=== PATIENT | male | born 1935 | race Caucasian/White ===

== ENCOUNTER → 2023-08-21 08:57 | Outpatient (BNVA) | payer OTHER, SELFPAY | PROVIDERS: PCP Family Medicine; Visit Provider Internal Medicine | DX: E11.9 Type 2 diabetes mellitus without complications (principal); E07.9 Disorder of thyroid, unspecified; E03.9 Hypothyroidism, unspecified; Z79.890 Hormone replacement therapy; Z79.85 Long-term (current) use of injectable non-insulin antidiabetic drugs | CPT/HCPCS: 99214 ==

== ENCOUNTER 2023-08-31 23:19 | Inpatient (IN) | payer OTHER, SELFPAY ==
--- NOTE | 2023-08-31 22:31 | ECG_ITS ---
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 Measurements Intervals [place] Rate: 102 P: 0 [place]: 0 QRS: -72 QRSD: 110 T: 123 QT: 354 QTc: 463 Interpretive Statements ATRIAL FIBRILLATION WITH RAPID VENTRICULAR RESPONSE LEFT AXIS DEVIATION [QRS AXIS < -30] POSSIBLE ANTERIOR MYOCARDIAL INFARCTION , OF INDETERMINATE AGE [30 ms Q WAVE IN V3/V4, OR R < 0.2 mV IN V4] ST DEPRESSION, CONSIDER SUBENDOCARDIAL INJURY [0.1+ mV ST DEPRESSION] Compared to ECG 08/06/2023 17:51:36 ST (T wave) deviation now present Intraventricular conduction delay no longer present Myocardial infarct finding still present Heavy baseline artifact. Need to repeat Electronically Signed On 09-01-2023 23:03:46 CDT by Ekaterina Delaney M.D. [id number]
[2023-08-31 23:22] VITALS: BP 109/93; PULSE 102; RESP 36; TEMP 36.5; O2SAT 100
--- NOTE | 2023-08-31 23:28 | XRR_ITS ---
PROCEDURE INFORMATION: Exam: XR Chest Exam date and time: 08/31/2023 11:35 PM Age: 88 years old Clinical indication: Dyspnea; Additional info: Dyspnea/cough TECHNIQUE: Imaging protocol: Radiologic exam of the chest. Views: 1 view. COMPARISON: CT chest con [id number] 08/06/2023 4:46 PM FINDINGS: Lungs: There is atelectasis of the left lower lung zone. Pleural spaces: Unremarkable. No pleural effusion. No pneumothorax. Heart/Mediastinum: There is cardiomegaly. Vasculature: Unfolding of the thoracic aorta. Bones/joints: Post sternotomy. Advanced degenerative of bilateral acromioclavicular and glenohumeral joints. XR/XR chest 1V portable [id number] IMPRESSION: No acute cardiopulmonary process.
--- NOTE | 2023-08-31 23:32 | ED_ITS ---
HPI - SOB/Dyspnea 2 General: Chief Complaint: Shortness of Breath/Dyspnea Stated Complaint: sob Time Seen by Provider: 08/31/23 23:27 History of Present Illness: HPI Narrative: 88-year-old male presents to the emergen cy department via EMS personnel. EMS personnel state that they were called because there was concern of the patient's heart rate being low. EMS personnel states that upon arrival patient did appear to be having significant respiratory distress he does have a history of laryngeal cancer with tracheal stoma. Patient does have a history of atrial fibrillation and congestive heart failure and approximately 1 month ago was admitted to the hospital for increased confusion and pneumonia. Patient does appear to be in acute respiratory distress and is having intermittent coughing episodes with thick mucus from his stoma. Associated symptoms: Reports chest pain Review of Systems 2 General: Reports: 10 or more systems reviewed and unremarkable except in HPI and below Const: Reports: fatigue and malaise Card: Reports: chest pain Resp: Reports: dyspnea, productive cough, wheezing and stridor PFSH ED 2 PFSH: Medical History Diastolic CHF Aspiration pneumonia NSTEMI (non-ST elevated myocardial infarction) History of spinal stenosis Atrial fibrillation Peripheral artery disease Coronary artery disease History of myxedema coma COPD (chronic obstructive pulmonary disease) Hypothyroidism Hypokalemia Seropositive rheumatoid arthritis of multiple sites High risk medication use Gout Diabetes Laryngeal cancer Surgical History History of femoropopliteal bypass History of hemorrhoidectomy History of umbilical hernia repair Previous back surgery 1995,1988,1966 H/O heart bypass surgery H/O laryngectomy (09/21/19) Total laryngectomy with bilateral neck dissection and with permanent tracheostomy Family History Other Cancer Diabetes Hypertension Lung disease Stroke Denies family history of Rheumatoid arthritis Lupus CAD (coronary artery disease) Chronic kidney disease (CKD) Social History Smoking and tobacco/nicotine status: former use of tobacco/nicotine Quit status (tobacco/nicotine): has quit using Former quit date comment: smoked x 45 years Physical Exam 2 Narrative: EXAM NARRATIVE: Constitutional: the patient appears well nourished and of normal development. Vital signs as documented. Increased work of breathing, Moderate work of breathing. Alert and oriented-to person, place, time and situation. Head, eyes, ears, nose, mouth, throat: Normocephalic, atraumatic. Pupils-equal, round, reactive to light. No scleral icterus. Normal-appearing external ears. Normal appearing nasal turbinates, no drainage. No obvious oral lesions, posterior oropharynx without erythema or exudates. Neck: Supple, stoma site with thick secretions, carotid bruits. Carotid upstrokes are brisk bilaterally. Lungs: Decreased bilaterally in the bases with intermittent expiratory wheezes. Tachypnea. Symmetrical rise and fall of chest, patient has significant increased work of breathing upon arrival to the emergency department and at initial exam. Cardiac: Atrial fibrillation, rate controlled. positive S1, S2. No murmurs, rubs or gallops that I can appreciate Abdomen: Soft, non-tender to palpation, normal active bowel sounds to all quadrants. No palpable masses, no organomegaly and abdominal bruits. Extremities: 2+ pulses in the upper extremities that are equal bilaterally, 2+ pulses in the lower extremities that are equal bilaterally. 2+ bilateral lower extremity edema. Moves all extremities well, sensation to all extremities are noted. Skin: wounds to buttocks at various stages of healing. Warm, dry, intact. Course 2 Vital Signs: Vital signs: Vital Signs Temperature 98.1 F 09/01/23 12:00 Pulse Rate 93 09/01/23 13:19 Respiratory Rate 22 H 09/01/23 13:19 Blood Pressure 90/77 09/01/23 13:19 Pulse Oximetry 100 09/01/23 13:19 Oxygen Delivery Me thod Room Air 09/01/23 12:00 MDM - SOB/Dyspnea Medical Decision Making Physical exam completed and documented, I will obtain serial cardiac enzymes, serial twelve-lead EKGs, chest x-ray, CBC, CMP, urinalysis, B-type natriuretic peptide, PT/PTT/INR, and a chest x-ray. I will provide cardiac dose aspirin and nitroglycerin administration if indicated. After eview of the twelve-lead EKG I will also provide loading dose of heparin and heparin drip. I have reviewed previous and pertinent medical records for assist in obtaining beneficial medical information to improved the care and treatment of the patient. I will consult the hospitalist for admission for additional evaluation treatment and care. Medical Records I reviewed the patient's medical records. Lab Data I reviewed the patient's lab results. 08/31/23 23:49 08/31/23 23:49 Labs/Radiology: Radiology Impressions Chest X-Ray 08/31/23 23:28 IMPRESSION: No acute cardiopulmonary process. Laboratory Results WBC 7.42 10^3/uL (3.29-11.43) 08/31/23 23:49 RBC 3.27 10^6/uL (3.85-5.65) L 08/31/23 23:49 Hgb 13.00 g/dL (11.27-16.99) 08/31/23 23:49 Hct 38.1 % (37-53) 08/31/23 23:49 MCV 116.5 fl (82-101) H 08/31/23 23:49 MCH 39.8 pg (27-33) H 08/31/23 23:49 MCHC 34.1 g/dL (30-55) 08/31/23 23:49 RDW 14.6 % (12.1-15.1) 08/31/23 23:49 Plt Count 188 10^3/cmm (157-399) 08/31/23 23:49 MPV 9.5 fL (7.4-10.4) 08/31/23 23:49 Neut % (Auto) 60.2 % 08/31/23 23:49 Lymph % (Auto) 27.5 % 08/31/23 23:49 [place] % (Auto) 7.7 % 08/31/23 23:49 Eos % (Auto) 0.1 % 08/31/23 23:49 Baso % (Auto) 0.7 % 08/31/23 23:49 Neut # (Auto) 4.47 10^3/uL (1.8-7.7) 08/31/23 23:49 Lymph # (Auto) 2.0 10^3/uL (0.8-4.8) 08/31/23 23:49 [place] # (Auto) 0.6 10^3/uL (0.2-0.9) 08/31/23 23:49 Eos # (Auto) 0.0 10^3/uL (0.0-0.8) 08/31/23 23:49 Baso # (Auto) 0.1 10^3/uL (0.0-0.1) 08/31/23 23:49 Nucleated RBC % (auto) 0.4 % 08/31/23 23:49 Nucleated RBCs # 0.0 /100WBC 08/31/23 23:49 PT 13.60 SECONDS (12.1-14.9) 08/31/23 23:49 INR 1.01 (0.8-1.2) 08/31/23 23:49 Specimen Type Arterial 08/31/23 23:35 Sample Site Brachial, right 08/31/23 23:35 ABG pH 7.66 (7.35-7.45) H* 08/31/23 23:35 ABG pCO2 11.8 mmHg (35-45) L* 08/31/23 23:35 ABG pO2 163.0 mmHg (80.0-100.0) H 08/31/23 23:35 ABG PO2/FiO2 Ratio 0 08/31/23 23:35 ABG HCO3 13.2 mmol/L (22-26) L 08/31/23 23:35 ABG Base Excess -3.9 mmol/L (-2.0-2.0) L 08/31/23 23:35 Mark Test N/a 08/31/23 23:35 Hematocrit 40.3 % (42-52) L 08/31/23 23:35 Hgb O2 Saturation > 100.0 % (95-100) H 08/31/23 23:35 Carboxyhemoglobin 0.8 %THgb (0.4-20.1) 08/31/23 23:35 Methemoglobin < 0.0 % (0.4-1.5) L 08/31/23 23:35 Total Hemoglobin 13.1 g/dL (14-18) L 08/31/23 23:35 O2 Delivery Device Trach collar 08/31/23 23:35 O2 Liters/Min 10.0 % 08/31/23 23:35 FiO2 60.0 % 08/31/23 23:35 Sheet Metal Supervisor ID Alewe 08/31/23 23:35 Sodium 131 mmol/L (136-145) L 08/31/23 23:49 Potassium 4.7 mmol/L (3.5-5.1) 08/31/23 23:49 Chloride 92 mmol/L (98-107) L 08/31/23 23:49 Carbon Dioxide 15 mmol/L (22-29) L 08/31/23 23:49 Anion Gap 28.7 (5-19) H 08/31/23 23:49 BUN 22 mg/dL (8-23) 08/31/23 23:49 Creatinine 1.1 mg/dL (0.7-1.2) 08/31/23 23:49 GFR Calculation Not Reportable 08/31/23 23:49 Glucose 167 mg/dL (65-115) H 08/31/23 23:49 POC Glucose 174 mg/dL (70-110) H 08/31/23 23:52 Calculated Osmolality 279 mOsm/kg (285-295) L 08/31/23 23:49 Lactic Acid 6.9 mmol/L (0.5-2.2) H* 08/31/23 23:49 Lactic Acid (Sepsis) 4.2 mmol/L (0.5-2.2) H* 09/01/23 02:09 Calcium 9.1 mg/dL (8.5-10.5) 08/31/23 23:49 Total Bilirubin 1.0 mg/dL (0.15-1.2) 08/31/23 23:49 AST 34 U/L (0-40) 08/31/23 23:49 ALT 19 U/L (0-41) 08/31/23 23:49 Alkaline Phosphatase 53 U/L (40-130) 08/31/23 23:49 Troponin T Baseline 140 ng/L (0-15) H* 08/31/23 23:49 Troponin T 120 Minute 116.0 ng/L (0-15) H 09/01/23 02:09 Delta Troponin T -24.0 ABS# (0-10) L 09/01/23 02:09 NT-Pro-B Natriuret Pep 3752 pg/mL (0-450) H 08/31/23 23:49 Total Protein 6.3 g/dL (6.6-8.7) L 08/31/23 23:49 Albumin 3.7 g/dL (3.5-5.2) 08/31/23 23:49 Globulin 2.6 g/dL (1.3-4.6) 08/31/23 23:49 Procalcitonin 0.13 ng/mL (0-0.5) 08/31/23 23:49 Serum Ketones Negative (Negative) 08/31/23 23:49 All radiology interpretation(s) finalized by discharge Discharge Plan Discharge Patient Disposition: Admitted As Inpatient Admit Provider: Gail Art Clinical Impression: Non-ST elevation OR (NSTEMI), Acute dyspnea Condition: Stable Coding Level of Care Code ED [employer]
[2023-08-31 23:43] LABS: Arterial Blood Gas Hematocrit 40.3 % (42-52); Base Excess ABG -3.9 mmol/L (-2.0-2.0); Blood Gas Sample Site Brachial, right; Blood Gas Sample Type Arterial; Carboxyhemoglobin 0.8 %THgb (0.4-20.1); HCO3 ABG 13.2 mmol/L (22-26); HGB O2 Sat > 100.0 % (95-100); Methemoglobin < 0.0 % (0.4-1.5); Oxygen Device TRACH COLLAR; PO2 FiO2 Ratio Arterial Blood 0; Total Hemoglobin 13.1 g/dL (14-18)
[2023-08-31 23:45] LABS: ABG PCO2 11.8 mmHg (35-45); ABG PH Result 7.66 (7.35-7.45)
[2023-08-31 23:54] VITALS: BP 109/93; PULSE 108; RESP 58; O2SAT 100
[2023-08-31 23:57] LABS: Glucose Point of Care 174 mg/dL (70-110)
[2023-08-31 23:58] LABS: Basophils # 0.1 10^3/uL (0.0-0.1); Basophils % 0.7 %; Eosinophils % 0.1 %; Hematocrit 38.1 % (37-53); Lymphocytes % 27.5 %; Mean Corpuscular HGB Conc 34.1 g/dL (30-55); Mean Corpuscular Hemoglobin 39.8 pg (27-33); Mean Corpuscular Volume 116.5 fl (82-101); Mean Platelet Volume 9.5 fL (7.4-10.4); Monocytes # 0.6 10^3/uL (0.2-0.9); Monocytes % 7.7 %; Neutrophils # 4.47 10^3/uL (1.8-7.7); Neutrophils % 60.2 %; Nucleated Red Blood Cells % 0.4 %; Platelet Count 188 10^3/cmm (157-399); Red Blood Count 3.27 10^6/uL (3.85-5.65); Red Cell Distribution Width 14.6 % (12.1-15.1); White Blood Count 7.42 10^3/uL (3.29-11.43)
[2023-09-01] VITALS (10 sets, daily range): BP systolic 90–139; BP diastolic 67–77; PULSE 69–107; RESP 17–33; TEMP 36.7–37.2; O2SAT 96–100; BMI 25.9
[2023-09-01 00:10] LABS: INR 1.01 (0.8-1.2)
[2023-09-01 00:12] LABS: Ketone (Acetest) Serum Negative (Negative)
[2023-09-01 00:27] LABS: Lactic Sepsis W/Reflex 6.9 mmol/L (0.5-2.2); Troponin(5th) Baseline 140 ng/L (0-15)
--- NOTE | 2023-09-01 00:27 | ECG_ITS ---
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 Measurements Intervals [place] Rate: 100 P: 0 ME: 0 QRS: -55 QRSD: 124 T: 101 QT: 375 QTc: 485 Interpretive Statements ATRIAL FIBRILLATION WITH RAPID VENTRICULAR RESPONSE WITH ABERRANT CONDUCTION OR VENTRICULAR PREMATURE COMPLEXES LEFT AXIS DEVIATION [QRS AXIS < -30] POSSIBLE ANTERIOR MYOCARDIAL INFARCTION , OF INDETERMINATE AGE [30 ms Q WAVE IN V3/V4, OR R < 0.2 mV IN V4] MODERATE T-WAVE ABNORMALITY, CONSIDER LATERAL ISCHEMIA [-0.1+ mV T-WAVE IN I/aVL/V5/V6] Compared to ECG 08/31/2023 22:31:19 Ventricular premature complex(es) now present Aberrant conduction of supraventricular beat(s) now present T-wave abnormality now present Possible ischemia now present ST (T wave) deviation no longer present Myocardial infarct finding still present Electronically Signed On 09-01-2023 23:18:35 CDT by Ekaterina Delaney M.D. [id number]
--- NOTE | 2023-09-01 00:29 | PC.RESP ---
Breathing treatment orderer. Not given at this time. Patient pulled trach mask off, pulling at IV, patient appears very agitated and in a great deal of pain. Patient states his jaw hurts. states he has Trigeminal Nerve Pain in his face. RN NOTIFIED at this time.
[2023-09-01 00:30] LABS: NT Pro B Type Natriuretic Pept 3752 pg/mL (0-450); Procalcitonin 0.13 ng/mL (0-0.5)
[2023-09-01 00:41] LABS: Alanine Aminotransferase 19 U/L (0-41); Albumin Level 3.7 g/dL (3.5-5.2); Alkaline Phosphatase 53 U/L (40-130); Blood Urea Nitrogen 22 mg/dL (8-23); Calcium 9.1 mg/dL (8.5-10.5); Carbon Dioxide 15 mmol/L (22-29); Chloride 92 mmol/L (98-107); Globulin 2.6 g/dL (1.3-4.6); Glucose 167 mg/dL (65-115); Osmolality Calculated 279 mOsm/kg (285-295); Sodium 131 mmol/L (136-145); Total Protein 6.3 g/dL (6.6-8.7)
[2023-09-01 00:46] LABS: Anion Gap 28.7 (5-19); Aspartate Amino Transferase 34 U/L (0-40); Potassium 4.7 mmol/L (3.5-5.1)
[2023-09-01] MEDS: sodium chloride 0.9% 1,000 ML 999 ML IV (00:46)
[2023-09-01] MEDS: LORazepam 2 mg/mL INJ 10 mL MDV 0.5 MG IVP (00:47)
[2023-09-01] MEDS: ketorolac 30 mg/mL INJ IVP (00:47)
[2023-09-01] MEDS: aspirin 81 mg Chew Tablet 324 MG PO (01:25)
[2023-09-01 01:45] LABS: Reflex Lactate Order REFLEX LACTIC ORDERD
[2023-09-01] MEDS: heparin 5,000 unit/mL INJ 1 mL 4000 UNIT IVP (02:32)
[2023-09-01 02:39] LABS: Lactic Acid level (Lactate) 4.2 mmol/L (0.5-2.2)
[2023-09-01] MEDS: heparin drip 25,000 UNIT/500 ML PREMIX 24.7699999999999996 UNIT IV (03:03)
--- NOTE | 2023-09-01 05:20 | P.HP_ITS ---
Providers/Chief Complaint 2 Admitting Physician: Gail Art MD Primary Care Provider: Farzaneh Bergeron MD Chief Complaint: sob History of Present Illness Wellington Graham is a 88 year old male with history of CABG, CHF, A-fib not on anticoagulation, myxedema, rheumatoid arthritis, laryngeal cancer status post tracheostomy with stoma, follows up with Dr. Ferreira outpatient, lives with his at home, uses voicebox to communicate, presented to the hospital for respiratory distress. Patient is stating that he was experiencing shortness of breath for last 3 to 4 days, he has not experienced any chest pain, fever, nausea, vomiting or diarrhea. He is endorsing history of COPD and stating that he always notices secretions around his stoma which is yellow to white in color. He does not consider it a new finding. In the ER he was diagnosed with non-STEMI with significant lactic acidosis related to increased work of breathing and respiratory distress ABG showed respiratory alkalosis His breathing improved with use of Ativan in the ER At the time of my evaluation patient is saturating well on room air he is hemodynamically stable not complaining of active shortness of breath or chest pain Patient is stating that he walks on his own with some difficulty but he manages to ambulate from his bedroom to the bathroom Review of Systems 2 Const: Denies: fever(s) Eyes: Denies: change in vision ENMT: Denies: throat pain Card: Denies: chest pain Resp: Reports: dyspnea and productive cough GI: Denies: abdominal pain : Denies: flank pain Musc: Denies: neck pain Skin/Breast: Denies: rash Neuro: Denies: headache(s) Psych: Reports: anxiety Medications/Allergies Home Medications Medication Instructions Recorded Confirmed Last Taken Type aspirin 81 mg tablet,delayed 81 mg PO DAILY 11/19/21 08/21/23 Unknown History release (Adult Aspirin Regimen) metoprolol tartrate 25 mg tablet 12.5 mg PO BID 11/19/21 08/21/23 Unknown History rosuvastatin 20 mg tablet 10 mg PO QPM 11/19/21 08/21/23 Unknown History terazosin 2 mg capsule 2 mg PO BEDTIME 11/19/21 08/21/23 Unknown History tiotropium 2.5 mcg-olodaterol 2.5 2 puff inhalation DAILY 11/19/21 08/21/23 Unknown History mcg/actuation mist for inhalation metolazone 5 mg tablet 2.5 mg PO BID PRN FLUID 12/30/22 08/21/23 Unknown History levothyroxine 150 mcg capsule 150 mcg PO DAILY 60 days #60 caps 01/06/23 08/21/23 Unknown Rx hydrocodone 5 mg-acetaminophen 325 See Rx Instructions .Route 02/10/23 08/21/23 Unknown History mg tablet .COMPLEX PRN Pain diclofenac sodium 1 % topical gel 2 g topical QID #100 grams 06/09/23 08/21/23 Unknown Rx semaglutide 0.25 mg or 0.5 mg (2 See Rx Instructions .Route 07/10/23 08/21/23 Unknown Rx mg/3 mL) subcutaneous pen injector .COMPLEX #3 mL (Ozempic) leflunomide 20 mg tablet See Rx Instructions .Route 07/14/23 08/21/23 Unknown Rx .COMPLEX #90 tabs albuterol sulfate 90 mcg/actuation 1 inh inhalation QID PRN COPD 08/06/23 08/21/23 Unknown History aerosol inhaler allopurinol 100 mg tablet 100 mg PO TID 08/06/23 08/21/23 Unknown History chlorhexidine gluconate 0.12 % See Rx Instructions .Route .COMPLEX 08/06/23 08/21/23 Unknown History mouthwash fluticasone 100 mcg-salmeterol 50 1 inh inhalation BID 08/06/23 08/21/23 Unknown History mcg/dose blistr powdr for inhalation (Advair Diskus) furosemide 40 mg tablet 40 mg PO BID 08/06/23 08/21/23 Unknown History gabapentin 400 mg capsule 400 mg PO TID 08/06/23 08/21/23 Unknown History losartan 50 mg tablet 25 mg PO DAILY 08/06/23 08/21/23 Unknown History magnesium oxide 800 mg PO DAILY 08/06/23 08/21/23 Unknown History megestrol 400 mg/10 mL (10 mL) 400 mg PO BID 08/06/23 08/21/23 Unknown History oral suspension nut.tx.gluc.intol,lac-free,soy See Rx Instructions .Route .COMPLEX 08/06/23 08/21/23 Unknown History (Glucerna oral liquid) nystatin 100,000 unit/mL oral 10 ml PO TID 08/06/23 08/21/23 Unknown History suspension omeprazole 20 mg capsule,delayed 20 mg PO DAILY 08/06/23 08/21/23 Unknown History release potassium chloride 20 mEq/15 mL See Rx Instructions .Route .COMPLEX 08/06/23 08/21/23 Unknown History oral liquid prednisone 5 mg tablet 5 mg PO QAM PRN Inflammation/JOINT 08/06/23 08/21/23 Unknown History FLARE sulfasalazine 500 mg tablet 500 mg PO BID 08/06/23 08/21/23 Unknown History sitagliptin phosphate 100 mg 100 mg PO DAILY #90 tabs 08/24/23 08/24/23 Unknown Rx tablet (Januvia) Allergies Allergy/AdvReac Type Severity Reaction Status Date / Time budesonide Allergy Unknown Unknown Verified 08/31/23 23:37 isosorbide Allergy Unknown ADR-Nausea Verified 08/31/23 23:37 oxycodone Allergy Unknown ADR-Itching Verified 08/31/23 23:37 tolmetin Allergy Unknown ALGY-Rash Verified 08/31/23 23:37 PFSH Acute 2 PFSH: Medical History Diastolic CHF Aspiration pneumonia NSTEMI (non-ST elevated myocardial infarction) History of spinal stenosis Atrial fibrillation Peripheral artery disease Coronary artery disease History of myxedema coma COPD (chronic obstructive pulmonary disease) Hypothyroidism Hypokalemia Seropositive rheumatoid arthritis of multiple sites High risk medication use Gout Diabetes Laryngeal cancer Surgical History History of femoropopliteal bypass History of hemorrhoidectomy History of umbilical hernia repair Previous back surgery 1995,1988,1966 H/O heart bypass surgery H/O laryngectomy (09/21/19) Total laryngectomy with bilateral neck dissection and with permanent tracheostomy Family History Other Cancer Diabetes Hypertension Lung disease Stroke Denies family history of Rheumatoid arthritis Lupus CAD (coronary artery disease) Chronic kidney disease (CKD) Social History Smoking and tobacco/nicotine status: former use of tobacco/nicotine Quit status (tobacco/nicotine): has quit using Former quit date comment: smoked x 45 years Vitals/I&O/Wt Last Vital Signs Temp 97.7 F 08/31/23 23:22 Pulse 90 09/01/23 04:21 Resp 17 09/01/23 04:21 BP 127/71 09/01/23 04:21 Pulse Ox 100 09/01/23 04:21 O2 Del Method Room Air 09/01/23 04:47 Weight last 48 hrs Weight 91.626 kg Weight 88.451 kg Physical Exam 2 Narrative: Awake and alert Mild signs of fluid overload Currently on room air Pleasant cough Hemodynamically stable Stoma with liquid thick secretions GCS 15 Nonfocal neuroexam Able to communicate via voicebox S1, S2 Abdomen soft Lower extremity skin wrinkling noted with signs of fluid overload 2+ edema Data 08/31/23 23:49 08/31/23 23:49 Micro: Microbiology 08/31/23 23:54 Blood Culture - Preliminary Blood SPECIMEN COLLECTED 08/31/23 23:49 Blood Culture - Preliminary Blood SPECIMEN COLLECTED A&P Assessment and plan (1) Congestive heart failure: Qualifiers: Heart failure chronicity: chronic Heart failure type: unspecified Qualified Code(s): I50.9 - Heart failure, unspecified (2) Non-ST elevation [place] (NSTEMI): (3) Diabetes: (4) Anemia: (5) Acute dyspnea: (6) Seropositive rheumatoid arthritis of multiple sites: (7) Respiratory alkalosis: (8) Metabolic acidosis: Plan Acute respiratory distress Patient was recently discharged from the hospital after management/exacerbation and pneumonia COPD exacerbation Patient was really anxious and reported Ativan Respiratory alkalosis is evident Previous CT scan showed moderate emphysema I will put him on broad-spectrum antibiotics Patient is stating that he always notices some secretion around tracheal stoma Will request CT neck and chest No active fever No leukocytosis Metabolic acidosis related to lactic acidemia Increased lactic acid seems to be related to increased work of breathing I do not see any active signs of sepsis Patient is afebrile without leukocytosis Add bicarb tablets If bicarb drops below further he may need bicarb drip I do anticipate improvement Non-STEMI No active chest pain Recent echo showed preserved action fraction Started heparin drip Received loading dose of aspirin in the ER Will add Plavix atorvastatin Will need ischemic workup Patient has history of CABG Dr. 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 store manager operations if needed I do not see any complications around tracheal stoma Patient is saturating well on room air Full code Mechanical soft diet Patient ambulates on his own at home uses a walker, lives with his Attestations 2 Medical Necessity Statement*: More than 2 midnights anticipated Diagnoses Congestive heart failure I50.9 Heart failure chronicity: chronic Heart failure type: unspecified Non-ST elevation [place] (NSTEMI) I21.4 Diabetes E11.9 Anemia D64.9 Acute dyspnea R06.00 Seropositive rheumatoid arthritis of multiple sites M05.79 Respiratory alkalosis E87.3 Metabolic acidosis E87.20
[2023-09-01] MEDS: vancomycin 1,250 MG/250 ML PIGGYBACK 250 MG IV ×2 (06:07→22:53)
[2023-09-01 06:31] LABS: Troponin 5 6HR Delta -29.1 ng/L (0-12)
[2023-09-01 06:32] LABS: Troponin 5 6HR 110.9 ng/L (0-15)
--- NOTE | 2023-09-01 06:57 | CT_ITS ---
WS: [id number] CT NECK NONCONTRAST HISTORY: tracheal stoma, history of laryngeal cancer. TECHNIQUE: Contiguous 2 mm axial images are performed through the neck without intravenous contrast. Sagittal and coronal reformats are also submitted. All CT scans at [facility] use at least on e of these dose optimization techniques: automated exposure control; mA and/or kV adjustment per amber ent size (includes targeted exams where dose is matched to clinical indication); or iterative reconst ruction. CONTRAST: CONTRAST: None DLP: 243.02 mGy.cm COMPARISON: 03/18/2022 Patient is status post laryngectomy with tracheostomy stoma now present. The study was performed without IV contrast. No new mass or asymmetry throughout the neck. Postsurgical changes of the laryngectomy are identified . There is no adenopathy in the cervical chains. Extensive calcifications throughout the carotid arteries. No supraclavicular lymph nodes. Osteopenia. Advanced degenerative changes in the cervical spine. IMPRESSION: 1. Status post complete laryngectomy. 2. No neck mass or adenopathy. This study was performed without IV contrast which limits sensitivity for subtle lesions.
--- NOTE | 2023-09-01 06:59 | USCV_ITS ---
Wellington Graham Age: 88 Gender: M : 1935 Exam Date: 09/01/2023 08:39 Ordering Phys: Gail Art MD Technologist: Exam Location: [facility] Indication: nstemi BP: 132 / 78 HR: 137 Rhythm: Sinus Technical Quality: Adequate MEASUREMENTS (Male / Female) Normal Values 2D ECHO LV Diastolic Diameter PLAX 3.2 cm 4.2 - 5.9 / 3.9 - 5.3 cm IVS Diastolic Thickness 1.2 cm 0.6 - 1.0 / 0.6 - 0.9 cm LVPW Diastolic Thickness 1.0 cm 0.6 - 1.0 / 0.6 - 0.9 cm LVOT Diameter 2.1 cm LV Ejection Fraction MOD 2C 63.0 % LV Ejection Fraction 2C AL 62.4 % LA Diameter 4.1 cm RA Systolic Volume 4C AL 75.1 ml RA Systolic Volume 4C MOD 71.3 ml Aorta at Sinotubular Diameter 2.5 cm M-MODE LA Ao Ratio MM 1.2 AV Cusp Separation MM 2.8 cm DOPPLER AV Peak Velocity 158.0 cm/s LVOT Peak Velocity 86.0 cm/s AV Area Cont Eq vti 2.5 cm squared AV Area Cont Eq pk 1.9 cm squared MV Peak Velocity 126.0 cm/s MV Area PHT 3.7 cm squared Mitral E to A Ratio 2.2 TV Peak Velocity 169.5 cm/s TR Peak Velocity 271.5 cm/s TR Peak Gradient 29.5 mmHg TR Mean Velocity 191.0 cm/s TR Mean Gradient 17.9 mmHg TR Velocity Time Integral 57.2 cm TV Peak E Velocity 91.0 cm/s Right Atrial Pressure 3.0 mmHg Pulmonary Artery Systolic Pressu 32.5 mmHg PV Peak Velocity 124.0 cm/s FINDINGS Left Ventricle Left ventricle is normal in size. LV systolic function is normal with EF of 55 to 60%. No regional wall motion abnormalities are seen. Right Ventricle Normal in size and function Right Atrium Normal in size Left Atrium Dilated Mitral Valve Mild mitral annular calcification. Trace mitral regurgitation. Aortic Valve Structurally normal aortic valve. No significant stenosis or regurgitation. Tricuspid Valve Mild tricuspid regurgitation. Pulmonary artery systolic pressure is normal. Pulmonic Valve Not well visualized Pericardium Normal Aorta Aortic root is mildly dilated IVC Not well visualized CONCLUSIONS LV systolic function is normal with EF of 55-60% Left atrium is dilated Trace mitral regurgitation Mild tricuspid regurgitation Aortic root is mildly dilated Compared to prior echocardiogram from 07/2023, no significant changes are seen Caesar Ulloa MD (Electronically Signed) Final Date: 01 September 2023 11:00 S
[2023-09-01] MEDS: FUROsemide 10 mg/mL SDV 4mL 40 MG IVP (07:19)
[2023-09-01] MEDS: clopidogrel 300 mg Tablet PO (07:19)
[2023-09-01] MEDS: piperacillin-tazobactam 3.375 GM in sodium chloride 0.9% (plus) 50 ML IV ×3 (07:20→22:26)
--- NOTE | 2023-09-01 08:02 | PC.PHAR ---
PT IS [facility] FOR MED LIST 8 AM 09/01/23
[2023-09-01] MEDS: aspirin 81 mg EC Tablet PO (09:17)
[2023-09-01] MEDS: clopidogrel 75 mg Tablet PO (09:17)
[2023-09-01] MEDS: metoprolol tartrate 25 mg Tablet PO ×2 (09:17→20:09)
[2023-09-01] MEDS: losartan 50 mg Tablet 25 MG PO (09:17)
[2023-09-01] MEDS: sodium bicarbonate 650 mg Tablet PO ×3 (09:17→20:09)
--- NOTE | 2023-09-01 09:22 | CT_ITS ---
WS: [id number] CT CHEST ANGIOGRAPHY WITH REFORMATS HISTORY: assess for PE TECHNIQUE: Contiguous axial images are obtained through the chest during arterial injection of intrav enous contrast. Images are reconstructed to evaluate the pulmonary arteries. MIP imaging also reviewe d. All CT scans at [facility] use at least one of these dose optimization techniques: automat ed exposure control; mA and/or kV adjustment per patient size (includes targeted exams where dose is matched to clinical indication); or iterative reconstruction. CONTRAST: Omnipaque 350; 76 mL IV. DLP: 434.06 mGy.cm COMPARISON: 08/06/2023 and 06/16/2022 Very good opacification of the pulmonary arteries. No central pulmonary emboli. Beginning in the segm ental branches of the LEFT lower lobe there are small filling defects extending distally within sever al branches of the pulmonary arteries. No emboli LEFT lower lobe. No upper lobe emboli. Ectatic mildly dilated thoracic aorta. Prior CABG. Hyperexpanded lungs from emphysema. Paraseptal emp hysema noted at the apices. No areas of consolidation. No pulmonary nodule or mass. No enlarged media stinal or hilar lymph nodes. Mild cardiomegaly. Extensive calcification in the splenic artery and suprarenal aorta. Visualized transverse colon conta ins numerous diverticula without acute diverticulitis. Advanced degenerative changes at the glenohumeral joints. Increase in thoracic kyphosis. Ankylosing s pondylitis. IMPRESSION: 1. Acute RIGHT lower lobe segmental and subsegmental pulmonary emboli. 2. No central pulmonary emboli. 3. Chronic emphysema. No pneumonia. 4. Mild cardiomegaly. 5. No adenopathy.
[2023-09-01 09:28] LABS: Partial Thromboplastin Time 63.6 SECONDS (23.9-36.7)
[2023-09-01] MEDS: iohexol 350 mg/mL 500 mL Btl (per mL) IV (10:38)
[2023-09-01 11:56] LABS: Lactic Sepsis W/Reflex 3.2 mmol/L (0.5-2.2)
[2023-09-01 12:46] LABS: Adenovirus Not Detected (NOT DETECT); Chlamydia Pneumoniae Not Detected (NOT DETECT); Coronavirus 229E,HKU1,NL63,OC4 Not Detected (NOT DETECT); Human Metapneumovirus Not Detected (NOT DETECT); Human Rhinovirus/Enterovirus Not Detected (NOT DETECT); Influenza A Not Detected (NOT DETECT); Influenza A H1 Not Detected (NOT DETECT); Influenza A H1-2009 Not Detected (NOT DETECT); Influenza A H3 Not Detected (NOT DETECT); Influenza B Not Detected (NOT DETECT); Mycoplasma Pneumoniae Not Detected (NOT DETECT); Parainfluenza Virus Type 1 Not Detected (NOT DETECT); Parainfluenza Virus Type 2 Not Detected (NOT DETECT); Parainfluenza Virus Type 3 Not Detected (NOT DETECT); Parainfluenza Virus Type 4 Not Detected (NOT DETECT); Respiratory Syncytial Virus A Not Detected (NOT DETECT); Respiratory Syncytial Virus B Not Detected (NOT DETECT); SARS-COV-2 Not Detected (NOT DETECT)
[2023-09-01 13:23] LABS: Reflex Lactate Order REFLEX LACTIC ORDERD
[2023-09-01 15:07] LABS: Lactic Acid level (Lactate) 3.1 mmol/L (0.5-2.2)
[2023-09-01 17:41] LABS: Partial Thromboplastin Time 58.1 SECONDS (23.9-36.7)
--- NOTE | 2023-09-01 18:08 | PC.NURSE ---
Physician Orders: resume home dose of hydrocodone-acetaminophen
[2023-09-01] MEDS: HYDROcodone-acetaminophen 5-325 mg Tablet 1 TAB PO ×2 (18:31→22:30)
[2023-09-01] MEDS: heparin drip 25,000 UNIT/500 ML PREMIX 24.6999999999999993 UNIT IV (20:11)
--- NOTE | 2023-09-01 20:12 | P.PN_ITS ---
Subjective 2 Subjective: Denies chest pain or pressure. At the moment breathing more comfortable. Vitals/I&O/Wt Last Vital Signs Temp 98.1 F 09/01/23 12:00 Pulse 88 09/01/23 18:19 Resp 25 H 09/01/23 18:19 BP 115/71 09/01/23 18:19 Pulse Ox 98 09/01/23 18:19 O2 Del Method Room Air 09/01/23 12:00 09/01/23 09/01/23 09/01/23 06:59 14:59 22:59 Intake Total 1000 / 1000 660 / 660 170 / 830 Output Total 450 / 450 Balance 1000 / 1000 660 / 660 -280 / 380 Weight last 48 hrs Weight 91.626 kg Weight 91.626 kg Weight 88.451 kg Physical Exam 2 Const: COMMON NORMALS: patient oriented x3 and alert GENERAL APPEARANCE: c ooperative ORIENTATION/CONSCIOUSNESS: Yes awake HENMT: COMMON NORMALS: oropharynx normal OTHER: Laryngectomy, tracheal stoma Neck/C-Spine: COMMON NORMALS: no JVD Resp: OTHER: Mild rhonchi right lung Cardio: COMMON NORMALS: no JVD, regular rhythm, S1 normal heart sound present, S2 normal heart sound present and No murmurs present (Cardio) RHYTHM: regular rhythm HEART SOUNDS: S1 normal heart sound present and S2 normal heart sound present GI: COMMON NORMALS: Normal to inspection, nondistended, normoactive bowel sounds present, Soft to palpation and non-tender PALPATION: Yes Soft to palpation Extremity: COMMON NORMALS: no joint enlargement and no pedal edema Neuro: COMMON NORMALS: patient oriented x3 and moves all extremities S ENSORIUM/ORIENTATION: Yes alert Skin: COMMON NORMALS: no rashes or lesions noted GENERAL SKIN EXAM: no rashes or lesions noted Data 08/31/23 23:49 08/31/23 23:49 Micro: Microbiology 08/31/23 23:54 Blood Culture - Preliminary Blood SPECIMEN COLLECTED 08/31/23 23:49 Blood Culture - Preliminary Blood SPECIMEN COLLECTED A&P Assessment and plan (1) Congestive heart failure: Qualifiers: Heart failure chronicity: chronic Heart failure type: unspecified Qualified Code(s): I50.9 - Heart failure, unspecified (2) Non-ST elevation AR (NSTEMI): (3) Diabetes: (4) Anemia: (5) Acute dyspnea: (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 He denies chest pain or pressure. Reviewed echocardiogram, noted normal ejection fraction and systolic function, left atrium dilated, mild aortic root dilation, trace MVR, mild TVR. Noted elevated D-dimer, respiratory alkalosis, discussed with him concern for possible PE in the context of his symptoms. Discussed CT angiogram, risk, he is agreeable. Requested, reviewed CTA, noted acute right lower lobe segmental and subsegmental pulmonary emboli. Chronic emphysema. Mild cardiomegaly. Continue anticoagulation. Monitor for risk of bleeding with anticoagulation, monitor PTT. Reassess blood counts. Will need to transition to oral anticoagulant prior to discharge. Discussed with case sealer. Patient was recently discharged from the hospital after management/exacerbation and pneumonia COPD exacerbation Patient was really anxious and reported Ativan Continue empiric antibiotic, Breathing treatments. Metabolic acidosis related to lactic acidemia Increased lactic acid seems to be related to increased work of breathing I do not see any active signs of sepsis Patient is afebrile without leukocytosis Stop bicarb tablets Non-STEMI. Reviewed echocardiogram. He is chest pain-free. Suspect this is demand ischemia secondary to respiratory symptoms, PE. Monitor on telemetry. Has history of CABG. Will benefit from further risk stratification with stress testing. Continue aspirin, Plavix, beta-rekha. Patient is saturating well on room air Full code Patient ambulates on his own at home uses a walker, lives with his Attestations 2 Medical Necessity Statement*: Continue admission for assessment management of PE, respiratory symptoms, COPD this admission, NSTEMI. Diagnoses Congestive heart failure I50.9 Heart failure chronicity: chronic Heart failure type: unspecified Non-ST elevation AR (NSTEMI) I21.4 Diabetes E11.9 Anemia D64.9 Acute dyspnea R06.00 Seropositive rheumatoid arthritis of multiple sites M05.79 Respiratory alkalosis E87.3 Metabolic acidosis E87.20
[2023-09-02] VITALS (11 sets, daily range): BP systolic 105–155; BP diastolic 48–91; PULSE 58–103; RESP 16–39; TEMP 36.5–37.1; O2SAT 93–100
[2023-09-02] MEDS: HYDROcodone-acetaminophen 5-325 mg Tablet 1 TAB PO ×4 (03:03→19:54)
[2023-09-02 04:55] LABS: Basophils % 0.4 %; Eosinophils % 0.2 %; Hematocrit 31.7 % (37-53); Lymphocytes # 0.4 10^3/uL (0.8-4.8); Lymphocytes % 9.6 %; Mean Corpuscular HGB Conc 34.4 g/dL (30-55); Mean Corpuscular Hemoglobin 39.6 pg (27-33); Mean Corpuscular Volume 115.3 fl (82-101); Mean Platelet Volume 9.7 fL (7.4-10.4); Monocytes # 0.2 10^3/uL (0.2-0.9); Neutrophils % 82.5 %; Nucleated Red Blood Cells % 0.7 %; Platelet Count 153 10^3/cmm (157-399); Red Blood Count 2.75 10^6/uL (3.85-5.65); Red Cell Distribution Width 14.7 % (12.1-15.1); White Blood Count 4.49 10^3/uL (3.29-11.43)
[2023-09-02 05:09] LABS: ABG PCO2 28.4 mmHg (35-45); ABG PH Result 7.52 (7.35-7.45); Arterial Blood Gas Hematocrit 35.2 % (42-52); Base Excess ABG 0.8 mmol/L (-2.0-2.0); Blood Gas Sample Site Brachial, left; Blood Gas Sample Type Arterial; PO2 ABG 72.6 mmHg (80.0-100.0); PO2 FiO2 Ratio Arterial Blood 0
[2023-09-02 05:14] LABS: Partial Thromboplastin Time 92.5 SECONDS (23.9-36.7)
[2023-09-02 05:21] LABS: Anion Gap 18.2 (5-19); Blood Urea Nitrogen 23 mg/dL (8-23); C Reactive Protein 4.3 mg/L (0.0-4.9); Calcium 8.4 mg/dL (8.5-10.5); Carbon Dioxide 20 mmol/L (22-29); Chloride 96 mmol/L (98-107); Creatinine Clr Calc Pharmacy 67.6619; Glucose 125 mg/dL (65-115); Magnesium 1.5 mg/dL (1.7-2.3); Osmolality Calculated 279 mOsm/kg (285-295); Phosphorus 2.6 mg/dL (2.5-4.5); Sodium 132 mmol/L (136-145)
[2023-09-02 05:26] LABS: Potassium 2.2 mmol/L (3.5-5.1)
--- NOTE | 2023-09-02 05:44 | PC.NURSE ---
Patient critical potassium level this am. Informed Dr Art and received order to give K-rider 20mEg with lidocaine x2 doses. RBVO
[2023-09-02] MEDS: lidocaine 1% 5 ML in potassium chloride premix 100 ML 52.5 ML IV ×2 (05:58→08:42)
[2023-09-02] MEDS: piperacillin-tazobactam 3.375 GM in sodium chloride 0.9% (plus) 50 ML IV ×2 (06:04→15:27)
[2023-09-02] MEDS: levothyroxine 150 mcg Tablet PO (06:05)
--- NOTE | 2023-09-02 07:48 | PC.NURSE ---
Physician Orders Hold lasix due to potassium of 2.2
[2023-09-02] MEDS: metoprolol tartrate 25 mg Tablet PO ×2 (08:41→20:55)
[2023-09-02] MEDS: potassium chloride oral liq 20 mEq/15 mL UDC 40 MEQ PO ×2 (08:41→20:55)
[2023-09-02] MEDS: aspirin 81 mg EC Tablet PO (08:41)
[2023-09-02] MEDS: clopidogrel 75 mg Tablet PO (08:41)
[2023-09-02] MEDS: magnesium sulfate premix 2 GM/50 ML PIGGYBACK IV (08:41)
[2023-09-02] MEDS: pantoprazole DR 40 mg Tablet PO (08:41)
--- NOTE | 2023-09-02 09:37 | PC.SOCIAL ---
IMM Update pg 2 of IMM updated and reviewed w/ patient. Copy provided and copy dated, initialed and placed in chart.
[2023-09-02 09:40] LABS: Procalcitonin 0.16 ng/mL (0-0.5)
[2023-09-02 10:45] LABS: Partial Thromboplastin Time 67.2 SECONDS (23.9-36.7)
[2023-09-02 10:53] LABS: Potassium 3.1 mmol/L (3.5-5.1)
[2023-09-02] MEDS: morphine 4 mg/mL SDV 1 mL IVP (15:27)
[2023-09-02 17:19] LABS: Partial Thromboplastin Time 67.7 SECONDS (23.9-36.7)
[2023-09-02] MEDS: vancomycin 1,250 MG/250 ML PIGGYBACK 250 MG IV (17:59)
[2023-09-02] MEDS: heparin drip 25,000 UNIT/500 ML PREMIX 20.6999999999999993 UNIT IV (19:56)
--- NOTE | 2023-09-02 20:30 | P.PN_ITS ---
Subjective 2 Subjective: He reports he is doing fair. No chest pain or pressure. Breathing is okay at rest. Is not noticed any obvious bleeding, hematuria, hematochezia or melena, emesis or other bleeding. Discussed with him regarding acutely decreased hemoglobin. Vitals/I&O/Wt Last Vital Signs Temp 98.3 F 09/02/23 20:00 Pulse 100 09/02/23 20:00 Resp 22 H 09/02/23 20:00 BP 122/91 09/02/23 20:00 Pulse Ox 94 09/02/23 20:00 O2 Del Method Room Air 09/02/23 20:00 09/02/23 09/02/23 09/02/23 06:59 14:59 22:59 Intake Total 530.122 / 1786.166 430 / 430 569.878 / 999.878 Output Total 325 / 1050 200 / 200 Balance 205.122 / 736.166 230 / 230 569.878 / 799.878 Weight last 48 hrs Weight 89.811 kg Weight 91.626 kg Weight 91.626 kg Weight 88.451 kg Physical Exam 2 Const: COMMON NORMALS: patient oriented x3 and alert GENERAL APPEARANCE: c ooperative ORIENTATION/CONSCIOUSNESS: Yes awake HENMT: COMMON NORMALS: oropharynx normal OTHER: Laryngectomy, tracheal stoma Neck/C-Spine: COMMON NORMALS: no JVD Resp: OTHER: Mild wheeze left lung Cardio: COMMON NORMALS: no JVD, regular rhythm, S1 normal heart sound present, S2 normal heart sound present and No murmurs present (Cardio) RHYTHM: regular rhythm HEART SOUNDS: S1 normal heart sound present and S2 normal heart sound present GI: COMMON NORMALS: Normal to inspection, nondistended, normoactive bowel sounds present, Soft to palpation and non-tender PALPATION: Yes Soft to palpation Extremity: COMMON NORMALS: no joint enlargement and no pedal edema Neuro: COMMON NORMALS: patient oriented x3 and moves all extremities S ENSORIUM/ORIENTATION: Yes alert Skin: COMMON NORMALS: no rashes or lesions noted GENERAL SKIN EXAM: no rashes or lesions noted Data 09/02/23 04:05 09/02/23 10:17 Micro: Microbiology 08/31/23 23:54 Blood Culture - Preliminary Blood NEGATIVE TO DATE 08/31/23 23:49 Blood Culture - Preliminary Blood NEGATIVE TO DATE A&P Assessment and plan (1) Congestive heart failure: Qualifiers: Heart failure chronicity: chronic Heart failure type: unspecified Qualified Code(s): I50.9 - Heart failure, unspecified (2) Non-ST elevation [place] (NSTEMI): (3) Diabetes: (4) Anemia: (5) Acute dyspnea: (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 He did not notice any active bleeding. Reviewed vitals, hemoglobin completed, WBC, PTT, ABG, BMP, magnesium. Requested Hemoccult. Needs to be able to tolerate this due to PEs. Discussed with him. He will let us know in case he notices any bleeding. Added PPI. Recheck CBC. Discussed with him continue heparin drip for now due to acute anemia, concerned that intubation may have to be discontinued quickly. Acute respiratory distress: ABG with improvement. Improving respiratory alkalosis. Improving tachypnea. Continue anticoagulation for PE but is also having acute anemia as above. Requested procalcitonin. Not elevated. No obvious pneumonia on imaging. Will de-escalate antibiotics. Stop Zosyn vancomycin. Continue ceftriaxone alone for now. Continue breathing treatments does have some mild wheezing on the left side. Discussed with pillowcase cleaner. echocardiogram, noted normal ejection fraction and systolic function, left atrium dilated, mild aortic root dilation, trace MVR, mild TVR. Patient was recently discharged from the hospital after management/exacerbation and pneumonia COPD exacerbation Patient was really anxious and reported Ativan De-escalate empiric antibiotic, Breathing treatments. Hypomagnesemia: Given replacement. Recheck magnesium. Hypokalemia: Given replacement for severe hypokalemia, recheck potassium. Hold Lasix for now. At risk of arrhythmia, monitor on telemetry. Metabolic acidosis related to lactic acidemia Increased lactic acid seems to be related to increased work of breathing I do not see any active signs of sepsis Patient is afebrile without leukocytosis Stop bicarb tablets Non-STEMI. Reviewed echocardiogram. He is chest pain-free. Suspect this is demand ischemia secondary to respiratory symptoms, PE. Monitor on telemetry. Has history of CABG. Will benefit from further risk stratification with stress testing. Continue aspirin, Plavix, beta-rekha. Patient is saturating well on room air Full code Patient ambulates on his own at home uses a walker, lives with his At risk of bleeding with anticoagulation. Attestations 2 Medical Necessity Statement*: Continue admission for assessment management of acute PE with acute anemia with anticoagulation. Diagnoses Congestive heart failure I50.9 Heart failure chronicity: chronic Heart failure type: unspecified Non-ST elevation NC (NSTEMI) I21.4 Diabetes E11.9 Anemia D64.9 Acute dyspnea R06.00 Seropositive rheumatoid arthritis of multiple sites M05.79 Respiratory alkalosis E87.3 Metabolic acidosis E87.20
[2023-09-02 22:12] LABS: Partial Thromboplastin Time 60.9 SECONDS (23.9-36.7)
[2023-09-03] VITALS (15 sets, daily range): BP systolic 119–135; BP diastolic 66–80; PULSE 69–104; RESP 14–33; TEMP 36.7–37.2; O2SAT 89–96
[2023-09-03] MEDS: morphine 4 mg/mL SDV 1 mL IVP ×4 (00:36→22:09)
[2023-09-03 04:01] LABS: Basophils % 0.7 %; Eosinophils % 0.7 %; Hematocrit 31.9 % (37-53); Lymphocytes # 0.7 10^3/uL (0.8-4.8); Lymphocytes % 23.1 %; Mean Corpuscular HGB Conc 34.2 g/dL (30-55); Mean Corpuscular Hemoglobin 39.9 pg (27-33); Mean Corpuscular Volume 116.8 fl (82-101); Mean Platelet Volume 9.5 fL (7.4-10.4); Monocytes # 0.2 10^3/uL (0.2-0.9); Monocytes % 6.6 %; Neutrophils # 1.97 10^3/uL (1.8-7.7); Neutrophils % 64.9 %; Nucleated Red Blood Cells % 0 %; Platelet Count 136 10^3/cmm (157-399); Red Blood Count 2.73 10^6/uL (3.85-5.65); Red Cell Distribution Width 14.6 % (12.1-15.1); White Blood Count 3.03 10^3/uL (3.29-11.43)
[2023-09-03 04:25] LABS: Magnesium 1.9 mg/dL (1.7-2.3)
[2023-09-03 04:32] LABS: Anion Gap 16.9 (5-19); Blood Urea Nitrogen 19 mg/dL (8-23); Calcium 8.2 mg/dL (8.5-10.5); Carbon Dioxide 20 mmol/L (22-29); Chloride 100 mmol/L (98-107); Creatinine Clr Calc Pharmacy 76.3605; Glucose 103 mg/dL (65-115); Osmolality Calculated 281 mOsm/kg (285-295); Sodium 134 mmol/L (136-145)
--- NOTE | 2023-09-03 04:42 | PC.NURSE ---
no changes to heparin drip per protocol on PTT
[2023-09-03 04:58] LABS: Potassium 2.9 mmol/L (3.5-5.1)
[2023-09-03] MEDS: levothyroxine 150 mcg Tablet PO (05:17)
--- NOTE | 2023-09-03 05:34 | PC.NURSE ---
pt potassium was 2.9 this morning contacted doctor Rubens he gave order for 20mEq of potassium IV with lidocaine for now this nurse put it telephone reback order
[2023-09-03] MEDS: lidocaine 1% 5 ML in potassium chloride premix 100 ML 52.5 ML IV (06:11)
[2023-09-03] MEDS: metoprolol tartrate 25 mg Tablet PO ×2 (08:09→20:28)
[2023-09-03] MEDS: pantoprazole DR 40 mg Tablet PO (08:09)
[2023-09-03] MEDS: cefTRIAXone 1,000 MG in sodium chloride 0.9% (plus) 50 ML 100 MG IV (08:09)
[2023-09-03] MEDS: clopidogrel 75 mg Tablet PO (08:09)
[2023-09-03] MEDS: aspirin 81 mg EC Tablet PO (08:09)
[2023-09-03] MEDS: HYDROcodone-acetaminophen 5-325 mg Tablet 1 TAB PO (08:09)
--- NOTE | 2023-09-03 08:18 | FL_ITS ---
WS: [id number] ESOPHAGRAM TECHNIQUE: Double contrast examination was performed with thin and thick barium. Upright and LUI imag es were obtained. CLINICAL INFORMATION: dysphagia, regurgitating food COMPARISON: None. FINDINGS: History of complete laryngectomy with tracheostomy stoma. Swallowing: Early spillage is visualized. No evidence of walter aspiration. Esophagus: Significant esophageal dysmotility with delayed emptying and tertiary contractions. Delaye d emptying on the upright imaging with standing column of contrast. Reflux is visualized to the thora cic inlet, pharynx and hypopharynx. Evidence of reflux esophagitis. Gastroesophageal reflux: Significant catheter esophageal reflux visualized in the upright and supine imaging. Reflux to the thoracic inlet only upright imaging and reflux to the pharynx and oropharynx o n the supine imaging. No high-grade strictures. Sternotomy with CABG. Tiny esophageal hiatal hernia. Narrowing of the hypopharynx which distends out with additional contrast. Fluoroscopy time: 3min [id number] IMPRESSION: 1. No evidence of high-grade stricture or obstructing mass. 2. Early spillage is visualized on the initial swallowing images. 3. No evidence of aspiration. 4. Significant esophageal dysmotility with tertiary contractions. Delayed emptying on the upright an d supine imaging with standing column of contrast. 5. Reflux is visualized to the pharynx and oropharynx on the supine imaging. 6. Evidence of significant reflux esophagitis with granular mucosa with small erosions and ulceratio ns. No high-grade strictures. This could be further evaluated with endoscopy. 7. Tiny esophageal hiatal hernia.
[2023-09-03] MEDS: apixaban 5 mg Tablet 10 MG PO ×2 (10:55→20:28)
--- NOTE | 2023-09-03 15:59 | P.PN_ITS ---
Subjective 2 Subjective: He reports he is doing okay today. Without new complaints. No chest pain or pressure. Vitals/I&O/Wt Last Vital Signs Temp 99.0 F 09/03/23 02:39 Pulse 84 09/03/23 14:44 Resp 23 H 09/03/23 14:44 BP 135/80 09/03/23 14:44 Pulse Ox 93 09/03/23 14:44 O2 Del Method CAG 09/03/23 10:10 FiO2 21 09/03/23 10:10 09/03/23 09/03/23 09/03/23 06:59 14:59 22:59 Intake Total 60 / 1179.878 395 / 395 Output Total 300 / 725 Balance -240 / 454.878 395 / 395 Weight last 48 hrs Weight 92.306 kg Weight 89.811 kg Physical Exam 2 Const: COMMON NORMALS: patient oriented x3 and alert GENERAL APPEARANCE: c ooperative ORIENTATION/CONSCIOUSNESS: Yes awake HENMT: COMMON NORMALS: oropharynx normal OTHER: Laryngectomy, tracheal stoma Neck/C-Spine: COMMON NORMALS: no JVD Resp: AUSCULTATION: rhonchi (mild) Cardio: COMMON NORMALS: no JVD, regular rhythm, S1 normal heart sound present, S2 normal heart sound present and No murmurs present (Cardio) RHYTHM: regular rhythm HEART SOUNDS: S1 normal heart sound present and S2 normal heart sound present GI: COMMON NORMALS: Normal to inspection, nondistended, normoactive bowel sounds present, Soft to palpation and non-tender PALPATION: Yes Soft to palpation Extremity: COMMON NORMALS: no joint enlargement and no pedal edema Neuro: COMMON NORMALS: patient oriented x3 and moves all extremities S ENSORIUM/ORIENTATION: Yes alert Skin: COMMON NORMALS: no rashes or lesions noted GENERAL SKIN EXAM: no rashes or lesions noted Data 09/03/23 03:02 09/03/23 03:02 A&P Assessment and plan (1) Congestive heart failure: Qualifiers: Heart failure chronicity: chronic Heart failure type: unspecified Qualified Code(s): I50.9 - Heart failure, unspecified (2) Non-ST elevation [place] (NSTEMI): (3) Diabetes: (4) Anemia: (5) Acute dyspnea: (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 Discussed with him. Discussed switch to Eliquis from heparin drip. Monitor for risk of bleeding. Reassess blood counts. Hemoccult requested. Continue PPI. Non-STEMI. Discussed with him additional assessment with stress test. Requested. N.p.o. after midnight. Reviewed echocardiogram. He is chest pain-free. Suspect this is demand ischemia secondary to respiratory symptoms, PE. Monitor on telemetry. Has history of CABG. Will benefit from further risk stratification with stress testing. Continue aspirin, Plavix, beta-rekha. Acute respiratory distress: Home oxygen evaluation. Discussed with case management manager. ABG with improvement. Improving respiratory alkalosis. Improving tachypnea. Continue anticoagulation for PE but is also having acute anemia as above. Requested procalcitonin. Not elevated. No obvious pneumonia on imaging. Will de-escalate antibiotics. Stop Zosyn vancomycin. Continue ceftriaxone alone for now. Continue breathing treatments does have some mild wheezing on the left side. echocardiogram, noted normal ejection fraction and systolic function, left atrium dilated, mild aortic root dilation, trace MVR, mild TVR. Patient was recently discharged from the hospital after management/exacerbation and pneumonia COPD exacerbation Patient was really anxious and reported Ativan De-escalate empiric antibiotic, Breathing treatments. Hypomagnesemia: Reviewed magnesium. Recheck. Hypokalemia: Received additional potassium, recheck level. At risk of arrhythmia, monitor on telemetry. Metabolic acidosis related to lactic acidemia Increased lactic acid seems to be related to increased work of breathing I do not see any active signs of sepsis Patient is afebrile without leukocytosis Stop bicarb tablets Patient is saturating well on room air Full code Patient ambulates on his own at home uses a walker, lives with his At risk of bleeding with anticoagulation. Attestations 2 Medical Necessity Statement*: Continue admission for assessment and management of NSTEMI, PE with acute anemia. and High MDM includes amount and/or complexity of data reviewed/ordered [ resulted lab(s)/test(s), ordered lab(s)/test(s) and other healthcare professional discussion] and described risk of complication, morbidity or mortality of management as documented Diagnoses Congestive heart failure I50.9 Heart failure chronicity: chronic Heart failure type: unspecified Non-ST elevation [place] (NSTEMI) I21.4 Diabetes E11.9 Anemia D64.9 Acute dyspnea R06.00 Seropositive rheumatoid arthritis of multiple sites M05.79 Respiratory alkalosis E87.3 Metabolic acidosis E87.20
[2023-09-04] VITALS (9 sets, daily range): BP systolic 101–134; BP diastolic 65–78; PULSE 63–100; RESP 15–32; TEMP 36.8–36.9; O2SAT 91–95
--- NOTE | 2023-09-04 | ECG_ITS ---
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 Interpretive Statements NAME OF STUDY: LEXISCAN SESTAMIBI STRESS TEST INDICATION: [troponin elevation, ] Procedure: At the baseline, the blood pressure was 136/91 mmHg with a heart rate of 95 bpm. The electrocardiogram showed atrial fibrillation, normal axis with normal ST and T's. The Lexiscan was infused over a period of 20 seconds. A total of 0.4 mg of Lexiscan was infused. The stress phase was continued for a total of 5 minutes. Heart rate was at the end of stress phase was 99 bpm and a blood pressure of 98/66 mmHg. The EKG at the peak infusion revealed atrial fibrillation with no significant ST-T wave changes. Sestamibi was injected 20 seconds after the Lexiscan infusion. Blood pressure at the end of recovery phase was 101/65 mmHg with a heart rate of 95 bpm. Conclusion: 1. Normal EKG response to Lexiscan infusion 2. No Lexiscan induced chest pain or cardiac arrhythmia. 3. Normal blood pressure and heart rate response. 4. Sestamibi/sestamibi perfusion scan pending; see separate report. Electronically Signed On 09-21-2023 11:49:19 CDT by Caesar Ulloa M.D. [email or web address]
[2023-09-04] MEDS: morphine 4 mg/mL SDV 1 mL IVP (03:53)
[2023-09-04] MEDS: levothyroxine 150 mcg Tablet PO (05:01)
[2023-09-04 05:22] LABS: Basophils % 0.6 %; Eosinophils % 0.6 %; Hematocrit 31.1 % (37-53); Lymphocytes # 0.8 10^3/uL (0.8-4.8); Lymphocytes % 23.5 %; Mean Corpuscular HGB Conc 34.7 g/dL (30-55); Mean Corpuscular Volume 115.2 fl (82-101); Mean Platelet Volume 9.6 fL (7.4-10.4); Monocytes # 0.3 10^3/uL (0.2-0.9); Monocytes % 7.9 %; Neutrophils # 2.23 10^3/uL (1.8-7.7); Neutrophils % 65.3 %; Nucleated Red Blood Cells % 0 %; Platelet Count 140 10^3/cmm (157-399); Red Cell Distribution Width 14.3 % (12.1-15.1); White Blood Count 3.41 10^3/uL (3.29-11.43)
[2023-09-04 05:45] LABS: Anion Gap 14.1 (5-19); Blood Urea Nitrogen 13 mg/dL (8-23); Calcium 8.2 mg/dL (8.5-10.5); Carbon Dioxide 24 mmol/L (22-29); Chloride 97 mmol/L (98-107); Creatinine Clr Calc Pharmacy 76.4409; Glucose 98 mg/dL (65-115); Osmolality Calculated 274 mOsm/kg (285-295); Potassium 3.1 mmol/L (3.5-5.1); Sodium 132 mmol/L (136-145)
[2023-09-04 05:52] LABS: Magnesium 1.7 mg/dL (1.7-2.3)
[2023-09-04] MEDS: regadenoson 0.4 Mg/5 ml Syringe 0.400000000000000022 MG IVP (08:14)
--- NOTE | 2023-09-04 09:56 | PC.SOCIAL ---
IMM Update pg 2 of IMM updated and reviewed w/ patient. Copy provided and copy dated, initialed and placed in chart.
[2023-09-04] MEDS: apixaban 5 mg Tablet 10 MG PO (10:29)
[2023-09-04] MEDS: clopidogrel 75 mg Tablet PO (10:29)
[2023-09-04] MEDS: aspirin 81 mg EC Tablet PO (10:30)
[2023-09-04] MEDS: sennosides-docusate Tablet 1 TAB PO (10:30)
[2023-09-04] MEDS: pantoprazole DR 40 mg Tablet PO (10:30)
[2023-09-04] MEDS: magnesium sulfate premix 2 GM/50 ML PIGGYBACK IV (10:31)
[2023-09-04] MEDS: metoprolol tartrate 25 mg Tablet PO (10:34)
[2023-09-04] MEDS: lidocaine 1% 5 ML in potassium chloride premix 100 ML 52.5 ML IV (10:35)
[2023-09-04] MEDS: cefTRIAXone 1,000 MG in sodium chloride 0.9% (plus) 50 ML 100 MG IV (10:36)
--- NOTE | 2023-09-04 11:16 | P.DS_ITS ---
Discharge Providers Date of Admission: 09/01/23 03:28 Date of Discharge: September 04, 2023 Attending Provider at Admission: Gail Art MD Attending Provider at Discharge: Clifford Bradley Primary Care Provider: Farzaneh Bergeron MD Diagnoses at Discharge Discharge Diagnosis (1) Congestive heart failure: Status: Acute Qualifiers: Heart failure chronicity: chronic Heart failure type: unspecified Qualified Code(s): I50.9 - Heart failure, unspecified (2) Non-ST elevation MT (NSTEMI): Status: Acute (3) Diabetes: Status: Acute (4) Anemia: Status: Acute (5) Acute dyspnea: Status: Acute (6) Seropositive rheumatoid arthritis of multiple sites: Status: Acute (7) Respiratory alkalosis: Status: Acute (8) Metabolic acidosis: Status: Acute Reason for Visit Reason for Visit: sob Hospital Course Hospital Course Pleasant 88-year-old gentleman with history of CABG, CHF, A-fib not on anticoagulation, myxedema, rheumatoid arthritis, laryngeal cancer status post laryngectomy was admitted due to respiratory distress, had been short of breath for preceding 3 to 4 days, recently treated for COPD exacerbation and pneumonia, on admission found to be in significant respiratory alkalosis, with tachypnea, respiratory distress, elevated troponin, although was on room air. D-dimer was abnormal with respiratory symptoms were additionally assessed with CT angiogram with finding of acute right lower lobe segmental and subsegmental PE. She was started on anticoagulation with heparin drip. Blood counts were monitored for any worsening of anemia and remained steady at 10.9. He did not experience any bleeding. He was transitioned to Eliquis. With history of CAD, elevated troponin presentation he was additionally assessed by stress testing which showed no ischemia. Echocardiogram with normal ejection fraction, left atrial dilation, mild TVR, trace MVR, aortic root mildly dilated. He is overall feeling much better, respiratory distress and alkalosis had resolved without recurrence, he is doing well on room air, did not qualify for oxygen on home O2 evaluation. During hospitalization he also expressed that he has been having difficulties with swallowing, especially with cold water, feels like he is regurgitating food. With dysphagia he was additionally assessed by barium swallow study with finding of significant esophageal dysmotility with tertiary contractions noted on barium swallow with delayed emptying on upright and supine imaging with standing column of contrast as well as with reflux visualized to the pharynx and oropharynx on supine imaging. Evidence of reflux esophagitis with granular mucosa small erosions and ulcerations. Tiny esophageal hiatal hernia. With severity of reflux, switch to discus omeprazole dosage increased to 40 mg twice daily, he is instructed to avoid any food or drink for 4 hours prior to going to bed, elevate head of bed 30 degrees, [facility] Please also refer him for endoscopic evaluation. With his soft blood pressures there was no safe option for esophageal dysmotility at this time, please reevaluate and consider whether PDE5 inhibitor or B or nitrate may become appropriate. She received magnesium potassium supplementation during hospitalization, please reassess. Physical Exam Narrative: Accompanied by his Const: COMMON NORMALS: patient oriented x3 and alert GENERAL APPEARANCE: cooperative ORIENTATION/CONSCIOUSNESS: Yes awake HENMT: COMMON NORMALS: oropharynx normal OTHER: Laryngectomy, tracheal stoma Neck/C-Spine: COMMON NORMALS: no JVD Resp: COMMON NORMALS: clear to auscultation bilaterally AUSCULTATION: clear to auscultation bilaterally Cardio: COMMON NORMALS: no JVD, regular rhythm, S1 normal heart sound present, S2 normal heart sound present and No murmurs present (Cardio) RHYTHM: regular rhythm HEART SOUNDS: S1 normal heart sound present and S2 normal heart sound present GI: COMMON NORMALS: Normal to inspection, nondistended, normoactive bowel sounds present, Soft to palpation and non-tender PALPATION: Yes Soft to palpation Extremity: COMMON NORMALS: no joint enlargement and no pedal edema Neuro: COMMON NORMALS: patient oriented x3 and moves all extremities SENSORIUM/ORIENTATION: Yes alert Skin: COMMON NORMALS: no rashes or lesions noted GENERAL SKIN EXAM: no rashes or lesions noted Discharge Data Studies Completed and Pending Completed Studies During Hospitalization Category Date Time Status CT neck wo con [id number] Routine Cat Scan 09/01/23 06:57 Completed CTA chest [CT angio chest PE protcl [id number]] Routine Cat Scan 09/01/23 09:22 Completed Cardiac Stress Test MIBI [Sestamibi Stress Test Request Exams 09/04/23 09:00 Draft ] Routine FL barium swallow [id number] Routine Exams 09/03/23 08:18 Completed XR chest 1V portable [id number] Stat Exams 08/31/23 23:28 Completed NM risa perf SPECT r/s* [id number] Routine Nuc Med 09/04/23 15:58 Completed CV. echo complete* [id number] Routine Ultrasound 09/01/23 06:59 Completed Pending at discharge Category Date Time Status Basic Metabolic Panel AM LABS Lab 09/05/23 04:00 Ordered Blood Culture Stat Lab 08/31/23 23:54 Results Complete Blood Count w/Auto AM LABS Lab 09/05/23 04:00 Ordered Magnesium AM LABS Lab 09/05/23 04:00 Ordered Occult Blood Stool [Immunochemical Fecal OCB] Routine Lab 09/02/23 08:16 Uncollected Sputum Culture and Gram Stain Routine Lab 09/01/23 06:59 Uncollected Sputum Culture and Gram Stain Stat Lab 08/31/23 23:28 Uncollected Radiology Impressions Chest X-Ray 08/31/23 23:28 IMPRESSION: No acute cardiopulmonary process. Laboratory Results WBC 3.41 10^3/uL (3.29-11.43) 09/04/23 04:11 RBC 2.70 10^6/uL (3.85-5.65) L 09/04/23 04:11 Hgb 10.80 g/dL (11.27-16.99) L 09/04/23 04:11 Hct 31.1 % (37-53) L 09/04/23 04:11 MCV 115.2 fl (82-101) H 09/04/23 04:11 MCH 40.0 pg (27-33) H 09/04/23 04:11 MCHC 34.7 g/dL (30-55) 09/04/23 04:11 RDW 14.3 % (12.1-15.1) 09/04/23 04:11 Plt Count 140 10^3/cmm (157-399) L 09/04/23 04:11 MPV 9.6 fL (7.4-10.4) 09/04/23 04:11 Neut % (Auto) 65.3 % 09/04/23 04:11 Lymph % (Auto) 23.5 % 09/04/23 04:11 [place] % (Auto) 7.9 % 09/04/23 04:11 Eos % (Auto) 0.6 % 09/04/23 04:11 Baso % (Auto) 0.6 % 09/04/23 04:11 Neut # (Auto) 2.23 10^3/uL (1.8-7.7) 09/04/23 04:11 Lymph # (Auto) 0.8 10^3/uL (0.8-4.8) 09/04/23 04:11 [place] # (Auto) 0.3 10^3/uL (0.2-0.9) 09/04/23 04:11 Eos # (Auto) 0.0 10^3/uL (0.0-0.8) 09/04/23 04:11 Baso # (Auto) 0.0 10^3/uL (0.0-0.1) 09/04/23 04:11 Nucleated RBC % (auto) 0 % 09/04/23 04:11 Nucleated RBCs # 0.0 /100WBC 09/04/23 04:11 PT 13.60 SECONDS (12.1-14.9) 08/31/23 23:49 INR 1.01 (0.8-1.2) 08/31/23 23:49 APTT 67.0 SECONDS (23.9-36.7) H 09/03/23 03:02 D-Dimer 8.10 ug/mLFEU (0-0.59) H 09/01/23 05:44 Specimen Type Arterial 09/02/23 05:00 Sample Site Brachial, left 09/02/23 05:00 ABG pH 7.52 (7.35-7.45) H 09/02/23 05:00 ABG pCO2 28.4 mmHg (35-45) L 09/02/23 05:00 ABG pO2 72.6 mmHg (80.0-100.0) L 09/02/23 05:00 ABG PO2/FiO2 Ratio 0 09/02/23 05:00 ABG HCO3 23.0 mmol/L (22-26) 09/02/23 05:00 ABG Base Excess 0.8 mmol/L (-2.0-2.0) 09/02/23 05:00 Mark Test N/a 09/02/23 05:00 Hematocrit 35.2 % (42-52) L 09/02/23 05:00 Hgb O2 Saturation > 100.0 % (95-100) H 08/31/23 23:35 Carboxyhemoglobin 0.8 %THgb (0.4-20.1) 08/31/23 23:35 Methemoglobin < 0.0 % (0.4-1.5) L 08/31/23 23:35 Total Hemoglobin 13.1 g/dL (14-18) L 08/31/23 23:35 O2 Delivery Device None 09/02/23 05:00 O2 Liters/Min 10.0 % 08/31/23 23:35 FiO2 21.0 % 09/02/23 05:00 Construction Safety Manager ID Alewe 09/02/23 05:00 Sodium 132 mmol/L (136-145) L 09/04/23 04:11 Potassium 3.1 mmol/L (3.5-5.1) L 09/04/23 04:11 Chloride 97 mmol/L (98-107) L 09/04/23 04:11 Carbon Dioxide 24 mmol/L (22-29) 09/04/23 04:11 Anion Gap 14.1 (5-19) 09/04/23 04:11 BUN 13 mg/dL (8-23) 09/04/23 04:11 Creatinine 0.6 mg/dL (0.7-1.2) L 09/04/23 04:11 GFR Calculation Not Reportable 09/04/23 04:11 Glucose 98 mg/dL (65-115) 09/04/23 04:11 POC Glucose 174 mg/dL (70-110) H 08/31/23 23:52 Calculated Osmolality 274 mOsm/kg (285-295) L 09/04/23 04:11 Lactic Acid 3.2 mmol/L (0.5-2.2) H 09/01/23 11:25 Lactic Acid (Sepsis) 3.1 mmol/L (0.5-2.2) H 09/01/23 14:29 Calcium 8.2 mg/dL (8.5-10.5) L 09/04/23 04:11 Phosphorus 2.6 mg/dL (2.5-4.5) 09/02/23 04:05 Magnesium 1.7 mg/dL (1.7-2.3) 09/04/23 04:11 Total Bilirubin 1.0 mg/dL (0.15-1.2) 08/31/23 23:49 AST 34 U/L (0-40) 08/31/23 23:49 ALT 19 U/L (0-41) 08/31/23 23:49 Alkaline Phosphatase 53 U/L (40-130) 08/31/23 23:49 Troponin T Baseline 140 ng/L (0-15) H* 08/31/23 23:49 Troponin T 120 Minute 116.0 ng/L (0-15) H 09/01/23 02:09 Delta Troponin T -24.0 ABS# (0-10) L 09/01/23 02:09 Troponin T Hi Sens 6Hr 110.9 ng/L (0-15) H 09/01/23 05:44 Troponin T Hi Sens 6Hr Delta -29.1 ng/L (0-12) L 09/01/23 05:44 C-Reactive Protein 4.3 mg/L (0.0-4.9) 09/02/23 04:05 NT-Pro-B Natriuret Pep 3752 pg/mL (0-450) H 08/31/23 23:49 Total Protein 6.3 g/dL (6.6-8.7) L 08/31/23 23:49 Albumin 3.7 g/dL (3.5-5.2) 08/31/23 23:49 Globulin 2.6 g/dL (1.3-4.6) 08/31/23 23:49 Procalcitonin 0.16 ng/mL (0-0.5) 09/02/23 04:05 Serum Ketones Negative (Negative) 08/31/23 23:49 Coronavirus 229E (PCR) Not detected (NOT DETECT) 09/01/23 10:47 SARS-CoV-2 (PCR) Not detected (NOT DETECT) 09/01/23 10:47 Vitals Last Vital Signs Temp 98.4 F 09/04/23 07:56 Pulse 100 09/04/23 09:41 Resp 16 09/04/23 09:41 BP 101/65 09/04/23 08:24 Pulse Ox 92 09/04/23 09:41 O2 Del Method CAG 09/04/23 09:41 O2 Flow Rate 7 09/03/23 19:19 FiO2 21 09/03/23 10:10 Discharge Plan Discharge Patient Disposition: Home Health Service Condition: Stable Prescriptions: New Eliquis 5 mg Tablet 10 mg PO BID@0900,2100 Qty: 90 0RF Rx Instructions: Take 10mg twice daily for 7 days then continue 5mg twice daily from there. magnesium L-threonate 48 mg magnesium (667 mg) capsule 48 mg PO DAILY Qty: 90 0RF Continued tiotropium-olodaterol 2.5-2.5 mcg/actuation mist 2 puff inhalation DAILY rosuvastatin 20 mg tablet 10 mg PO QPM terazosin 2 mg capsule 2 mg PO BEDTIME aspirin [Adult Aspirin Regimen] 81 mg tablet,delayed release (DR/EC) 81 mg PO DAILY metoprolol tartrate 25 mg tablet 12.5 mg PO BID hydrocodone-acetaminophen 5-325 mg tablet See Rx Instructions .ROUTE .COMPLEX PRN (Reason: Pain) Rx Instructions: TAKE 1 TABLET BY MOUTH EVERY 4 TO 6 HOURS NEEDED FOR PAIN. MAX OF 3 PER DAY. HOLD WITHIN 4 HOURS OF PLANNED SLEEP. MUST LAST 30 DAYS. DO NOT EXVEED 4000 MG PER DAY OF ACETAMINOPHEN FROM ALL MEDS. losartan 50 mg Tablet 25 mg PO DAILY furosemide 40 mg Tablet 40 mg PO BID nystatin 100,000 unit/mL Suspension 10 ml PO TID Rx Instructions: swish and swallow potassium chloride 20 mEq/15 mL Liquid See Rx Instructions .ROUTE .COMPLEX Rx Instructions: TAKE 60 ML BY MOUTH 3 TIMES DAILY AND 30 ML AT BEDTIME FOR HYPOKALEMIA. MIX EACH 15 ML WITH AT LEAST 6 OZ WATER/JUICE BEFORE TAKING. fluticasone propion-salmeterol [Advair Diskus] 100-50 mcg/dose Blister With Device 1 inh INHALATION BID albuterol sulfate 90 mcg/actuation Hfa Aerosol Inhaler 1 inh INHALATION QID PRN (Reason: COPD) Glucerna Liquid See Rx Instructions .ROUTE .COMPLEX Rx Instructions: 2 CANFULS BY MOUTH ONCE DAILY FOR NUTRITIONAL SUPPLEMENTATION. chlorhexidine gluconate 0.12 % Mouthwash See Rx Instructions .ROUTE .COMPLEX Rx Instructions: SWISH IN MOUTH FOR 30 SECONDS AND SPIT 15 ML BY MOUTH TWICE DAILY FOR PERIODONTITIS megestrol 400 mg/10 mL (10 mL) Suspension 400 mg PO BID gabapentin 400 mg Capsule 400 mg PO TID allopurinol 100 mg Tablet 100 mg PO TID magnesium oxide 400 mg magnesium Tablet 800 mg PO DAILY Rx Instructions: DO NOT TAKE WITH LEVOTHYROXINE prednisone 5 mg tablet 5 mg PO QAM PRN (Reason: Inflammation/JOINT FLARE) metolazone 2.5 mg Tablet 2.5 mg PO BID PRN (Reason: FLUID RETENTION) lidocaine 5 % Adhesive Patch,Medicated See Rx Instructions .ROUTE .COMPLEX Rx Instructions: APPLY 1 PATCH TO SKIN SITE ONCE DAILY. KEEP ON FOR 12 HOURS, THEN REMOVE PATCH FOR 12 HOURS. levothyroxine 175 mcg Tablet 175 mcg PO DAILY Changed omeprazole 20 mg Capsule,Delayed Release(Dr/Ec) 40 mg PO BID Qty: 90 0RF Discontinued diclofenac sodium 1 % gel 2 g topical QID Qty: 100 2RF Discharge Orders: Discharge Order (Routine); Ordered 09/04/23 Ordered By: Clifford Bradley Referrals: [facility] [Outside] Farzaneh Bergeron MD [Primary Care Provider] - 09/07/23 2:20 pm (Your first follow up will be with Bettie Malone at Dr. Roach's Office. ) Patient Instructions: Magnesium (By mouth) (CalMag Thins, Coral Calcium, GNC..., Apixaban (By mouth), Heart Failure (DC), Pulmonary Embolism (GEN), GERD (Gastroesophageal Reflux Disease) (GEN), Esophagitis (GEN), CHF Stoplight, Opioid Safety, Post Heart Attack Stoplight Activity Restrictions/Additional Instructions: Follow-up with your primary provider for reassessment of pulmonary embolism, anticoagulation, anemia. Please have them recheck your blood counts for next appointment. Please have your primary provider also recheck your electrolytes magnesium, potassium for which she required supplementation while in the hospital. Follow-up with your primary doctor and discuss regarding significant esophageal dysmotility with tertiary contractions noted on barium swallow with delayed emp tying on upright and supine imaging with standing, no contractions as well as with reflux visualized to the pharynx and oropharynx on supine imaging. Discuss regarding evidence of reflux esophagitis with granular mucosa small erosions and ulcerations. Have your primary provider refer you for additional assessment by endoscopy once you are further out of current acute illness. Tiny esophageal hiatal hernia. Your pantoprazole dose is increased to 40mg twice daily. Please elevate head of bed to 30 degrees if possible. Avoid eating or drinking anything for 4 hours before going to bed. Please have the [facility] request for a hospital bed for you to be able to elevate your head of bed due to the severity of reflux and esophagitis. Discharge Attestations Time Spent in Discharge Care*: greater than 30 min Quality Metrics Clinical Quality Measures [ No reported AMI, CVA or VTE this stay] Coding Level of Care Code 70228 Total time (in minutes) for Discharge: 45 Diagnoses Congestive heart failure I50.9 Heart failure chronicity: chronic Heart failure type: unspecified Non-ST elevation MT (NSTEMI) I21.4 Diabetes E11.9 Anemia D64.9 Acute dyspnea R06.00 Seropositive rheumatoid arthritis of multiple sites M05.79 Respiratory alkalosis E87.3 Metabolic acidosis E87.20
--- NOTE | 2023-09-04 15:58 | NMCV_ITS ---
NM risa perf SPECT r/s* [id number] Wellington Graham Age: 88 Gender: M : 1935 Exam Date: 09/04/2023 07:36 Ordering Phys: Clifford Bradley MD Technologist: IVAN Osorio Exam Location: [facility] Indications: CHEST PAIN STRESS TEST [facility] IMAGE PROTOCOL Rest/Stress 1 Lexiscan Day Radiopharmaceutical Dose (mCi) Administration Site Administered by Rest: Tc-99m 10.7 IV IVAN Jacinto Sestamibi Stress:Tc-99m 32.9 IV IVAN Jacinto Sestamibi Rest: 04-Sep-2023 60 Discovery 630 Stress: 04-Sep-2023 30 Discovery 630 0.4mg Lexiscan. Supine position only as patient was unable to lay prone. SPECT RESULTS Technical Quality: Excellent Raw Data Analysis: Normal Image Corrections: No attenuation or motion correction applied Summed Stress Score: 1 Summed Rest Score: 7 Summed Difference Score: 0 PERFUSION FINDINGS There is reduced radiotracer uptake in inferior, apical and inferolateral wilson at rest imaging. This resolves on stress imaging. This is consistent with attenuation artifact. FUNCTIONAL RESULTS (calculated via Gated SPECT) Stress Image LV EF (%): 55 Stress EDV (mL):85 TID: 0.98 Stress ESV (mL):38 FUNCTIONAL FINDINGS: There is normal left ventricular systolic function. IMPRESSIONS 1. Attenuation artifact seen in inferior, inferolateral and apical wilson. No evidence of ischemia 2. LV systolic function is normal Caesar Ulloa MD (Electronically Signed) Final Date: 04 September 2023 10:28 S
--- NOTE | 2023-09-04 16:14 | PC.NURSE ---
Discharge Note Patient discharged to [home] via [w/c to POV] accompanied by [family]. Discharge instructions reviewed with patient and/or printing sales representative. Mobile pharmacy medications and/or prescriptions provided. Belongings/home medications returned.
== END 2023-09-04 16:15 | disposition home health service (06) | DRG 175 ==
LOC: ER 09-01 03:33 → CSU 09-01 04:00
PROVIDERS: Admitting Provider Internal Medicine; Emergency Provider Internal Medicine; PCP Family Medicine; Visit Provider Internal Medicine
DX: I26.93 Single subsegmental thrombotic pulmonary embolism without acute cor pulmonale (principal); I21.A1 Myocardial infarction type 2; E87.20 Acidosis, unspecified; E87.3 Alkalosis; I50.32 Chronic diastolic (congestive) heart failure; I26.99 Other pulmonary embolism without acute cor pulmonale; Z87.891 Personal history of nicotine dependence; D64.9 Anemia, unspecified; E83.42 Hypomagnesemia; E87.6 Hypokalemia; R13.10 Dysphagia, unspecified; K22.4 Dyskinesia of esophagus; K21.00 Gastro-esophageal reflux disease with esophagitis, without bleeding; K44.9 Diaphragmatic hernia without obstruction or gangrene; I48.91 Unspecified atrial fibrillation; Z79.01 Long term (current) use of anticoagulants; I11.0 Hypertensive heart disease with heart failure; Z93.0 Tracheostomy status; Z85.21 Personal history of malignant neoplasm of larynx; M10.9 Gout, unspecified; M05.89 Other rheumatoid arthritis with rheumatoid factor of multiple sites; E03.9 Hypothyroidism, unspecified; J43.9 Emphysema, unspecified; I25.10 Atherosclerotic heart disease of native coronary artery without angina pectoris; Z95.1 Presence of aortocoronary bypass graft; E11.51 Type 2 diabetes mellitus with diabetic peripheral angiopathy without gangrene; I25.2 Old myocardial infarction
CPT/HCPCS: 36415; 36416; 36600; 70490; 71045; 71275; 74220; 78452; 80048; 80053; 82009; 82803; 82805; 82962; 83605; 83735; 83880; 84100; 84132; 84145; 84484; 85025; 85378; 85610; 85730; 86140; 87040; 87635; 93005; 93017; 93306; 94760; 94799; 96365; 96375; 96376; 99285; A9500; J0696; J1644; J1885; J1940; J2060; J2270; J2543; J2785; J3370; J3475; J3480; J7030; Q9967

== ENCOUNTER → 2023-09-22 12:57 | Outpatient (BNVA) | payer OTHER, SELFPAY | PROVIDERS: PCP Family Medicine; Visit Provider Internal Medicine | DX: I25.10 Atherosclerotic heart disease of native coronary artery without angina pectoris (principal); E11.51 Type 2 diabetes mellitus with diabetic peripheral angiopathy without gangrene; I11.0 Hypertensive heart disease with heart failure; I50.30 Unspecified diastolic (congestive) heart failure; Z87.891 Personal history of nicotine dependence | CPT/HCPCS: 99214 ==

== ENCOUNTER 2023-10-29 17:44 | Inpatient (IN) | payer OTHER, SELFPAY ==
[2023-10-29] VITALS (8 sets, daily range): BP systolic 120–141; BP diastolic 70–86; PULSE 71–90; RESP 21–22; TEMP 36.8; O2SAT 93–99; BMI 28.0
--- NOTE | 2023-10-29 19:42 | ECG_ITS ---
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 Measurements Intervals [place]o Rate: 82 P: 0 NE: 0 QRS: -73 QRSD: 138 T: 93 QT: 402 QTc: 471 Interpretive Statements ATRIAL FIBRILLATION WITH ABERRANT CONDUCTION OR VENTRICULAR PREMATURE COMPLEXES LEFT AXIS DEVIATION [QRS AXIS < -30] INTRAVENTRICULAR CONDUCTION DELAY [130+ ms QRS DURATION] POSSIBLE ANTERIOR MYOCARDIAL INFARCTION , OF INDETERMINATE AGE [30 ms Q WAVE IN V3/V4, OR R < 0.2 mV IN V4] Compared to ECG 09/01/2023 00:27:04 Intraventricular conduction delay now present T-wave abnormality no longer present Possible ischemia no longer present Myocardial infarct finding still present Electronically Signed On 10-30-2023 9:21:04 CDT by Caesar Ulloa M.D. [id number]
--- NOTE | 2023-10-29 19:42 | XRR_ITS ---
PROCEDURE INFORMATION: Exam: XR Chest Exam date and time: 10/29/2023 9:01 PM Age: 88 years old Clinical indication: Shortness of breath TECHNIQUE: Imaging protocol: Radiologic exam of the chest. Views: 1 view. COMPARISON: CR XR chest 1V portable [id number] 08/31/2023 11:35 PM FINDINGS: Lungs: No CHF/pulmonary edema. Visible lungs appear essentially clear. Pleural spaces: No visible pneumothorax. No definite pleural fluid. Heart/Mediastinum: Mild to moderate cardiomegaly, essentially stable. Bones/joints: Prior median sternotomy. XR/XR chest 1V [id number] IMPRESSION: 1. No definite CHF or pneumonia. 2. Other findings discussed above.
--- NOTE | 2023-10-29 20:28 | W.ED.SOB ---
HPI - SOB/Dyspnea General: Chief Complaint: Shortness of Breath/Dyspnea Stated Complaint: edema Time Seen by Provider: 10/29/23 20:17 History of Present Illness: HPI Narrative: 88-year-old man with a history of diastolic heart failure coronary artery disease atrial fibrillation peripheral artery disease COPD hypokalemia diabetes and laryngeal cancer with tracheostomy. Who presents to the emergency room with worsening lower extremity swelling. He presents with worsening lower extremity swelling. Swelling goes up to his knees. He is taken some extra oral diuretics that have not helped. His primary told him to come to the emergency room. He denies any worsening shortness of breath or orthopnea. No chest pain. No fevers. No altered mental status. Review of Systems Narrative: Constitutional symptoms: Negative except as documented in HPI. Skin symptoms: Negative except as documented in HPI. Eye symptoms: Negative except as documented in HPI. ENMT symptoms: Negative except as documented in HPI. Respiratory symptoms: Negative except as documented in HPI. Cardiovascular symptoms: Negative except as documented in HPI. Gastrointestinal symptoms: Negative except as documented in HPI. Genitourinary symptoms: Negative except as documented in HPI. Musculoskeletal symptoms: Negative except as documented in HPI. Neurologic symptoms: Negative except as documented in HPI. Psychiatric symptoms: Negative except as documented in HPI. Endocrine symptoms: Negative except as documented in HPI. FORMERLY [facility] ED PFSH: Medical History Diastolic CHF Aspiration pneumonia NSTEMI (non-ST elevated myocardial infarction) History of spinal stenosis Atrial fibrillation Peripheral artery disease Coronary artery disease History of myxedema coma COPD (chronic obstructive pulmonary disease) Hypothyroidism Hypokalemia Seropositive rheumatoid arthritis of multiple sites High risk medication use Gout Diabetes Laryngeal cancer Surgical History History of femoropopliteal bypass History of hemorrhoidectomy History of umbilical hernia repair Previous back surgery 1995,1988,1966 H/O heart bypass surgery H/O laryngectomy (09/21/19) Total laryngectomy with bilateral neck dissection and with permanent tracheostomy Family History Other Cancer Diabetes Hypertension Lung disease Stroke Denies family history of Rheumatoid arthritis Lupus CAD (coronary artery disease) Chronic kidney disease (CKD) Social History Smoking and tobacco/nicotine status: former use of tobacco/nicotine Quit status (tobacco/nicotine): has quit using Former quit date comment: smoked x 45 years Physical Exam Narrative: EXAM NARRATIVE: General: Alert, no acute distress. Skin: Warm, dry. Head: Normocephalic, atraumatic. Neck: Supple, trachea midline. Eye: Extraocular movements are intact. Ears, nose, mouth and throat: mucosa moist. Cardiovascular: Regular, Normal peripheral perfusion. 3+ pitting edema to the knees. Respiratory: Lungs are clear to auscultation, respirations are non-labored, breath sounds are equal, Symmetrical chest wall expansion. Gastrointestinal: Soft, Nontender, Non distended, Normal bowel sounds. Musculoskeletal: Normal ROM, no deformity. Neurological: Alert and oriented, No focal neurological deficit observed. Psychiatric: Cooperative, appropriate mood & affect. Course Vital Signs: Vital signs: Vital Signs Temperature 98.2 F 10/29/23 18:04 Pulse Rate 71 10/29/23 21:00 Respiratory Rate 21 H 10/29/23 20:42 Blood Pressure 141/86 10/29/23 21:00 Pulse Oximetry 98 10/29/23 21:00 Oxygen Delivery Me thod Room Air 10/29/23 21:00 MDM - SOB/Dyspnea Medical Decision Making Medical decision making: Differential diagnosis including but not limited to and based on the above HPI, review of systems and physical exam: Patient was swelling a history of heart failure. Basic lab work including kidney function and proBNP and x-ray were done. He does deny any signs of pulmonary edema. No orthopnea. Orders placed to evaluate differential diagnosis based on the above differential, HPI and physical exam Lab Review: Laboratory results were reviewed and interpreted by myself the emergency room physician. Lab work is unremarkable. Hemoglobin is 15. BUN and creatinine are 19 and 0.8. He does have a low potassium. EKG: Time 2028 rate 82 atrial fibrillation with controlled rate, No ST-T changes, PVCs, This was reviewed and interpreted by myself the ER physician at 2033 Chest x-ray: No acute process. No signs of pulmonary edema. No infiltrate. No pneumothorax. Stable cardiomegaly. This was reviewed and interpreted by myself the ER physician. I reviewed the patient's medical record. Reexamination: Patient remained stable. No increased work of breathing. No altered mental status. No focal motor deficits. Assessment and plan: Edema Congestive heart failure Hypokalemia -Patient has failed increased Lasix as an outpatient and requests admission for IV diuretics. This is what was required last time he had these issues. -80 mg IV Lasix in the emergency room -40 mEq p.o. and 40 mEq IV potassium -I discussed the patient with the hospitalist on-call who is admitting the patient. - Discussed findings and plan with patient. Answered any questions. - All laboratory values were reviewed and interpreted personally by myself, the ER physician - All imaging was reviewed and interpreted personally by myself, the ER physician. - Evaluation and treatment of this problem were appropriate in the emergency setting Lab Data 10/29/23 20:25 10/29/23 20: Labs/Radiology: Laboratory Results WBC 7.39 10^3/uL (3.29-11.43) 10/29/23 20: RBC 3.88 10^6/uL (3.85-5.65) 10/29/23 20: Hgb 15.20 g/dL (11.27-16.99) 10/29/23 20: Hct 43.0 % (37-53) 10/29/23 20: MCV 110.8 fl (82-101) H 10/29/23 20:25 MCH 39.2 pg (27-33) H 10/29/23 20: MCHC 35.3 g/dL (30-55) 10/29/23 20: RDW 13.6 % (12.1-15.1) 10/29/23 20: Plt Count 194 10^3/cmm (157-399) 10/29/23 20: MPV 9.2 fL (7.4-10.4) 10/29/23 20: Neut % (Auto) 48.0 % 10/29/23 20: Lymph % (Auto) 38.4 % 10/29/23 20: Ward % (Auto) 10.3 % 10/29/23 20: Eos % (Auto) 0.5 % 10/29/23 20: Baso % (Auto) 0.9 % 05/09/24 20:25 Neut # (Auto) 3.54 10^3/uL (1.8-7.7) 10/29/23 20:25 Lymph # (Auto) 2.8 10^3/uL (0.8-4.8) 10/29/23 20:25 Ward # (Auto) 0.8 10^3/uL (0.2-0.9) 10/29/23 20:25 Eos # (Auto) 0.0 10^3/uL (0.0-0.8) 10/29/23 20:25 Baso # (Auto) 0.1 10^3/uL (0.0-0.1) 10/29/23 20:25 Nucleated RBC % (auto) 0 % 10/29/23 20: Nucleated RBCs # 0.0 /100WBC 10/29/23 20:25 Sodium 132 mmol/L (136-145) L 10/29/23 20:25 Potassium 2.7 mmol/L (3.5-5.1) L* 10/29/23 20:25 Chloride 89 mmol/L (98-107) L 10/29/23 20:25 Carbon Dioxide 27 mmol/L (22-29) 10/29/23 20:25 Anion Gap 18.7 (5-19) 10/29/23 20:25 BUN 19 mg/dL (8-23) 10/29/23 20:25 Creatinine 0.8 mg/dL (0.7-1.2) 10/29/23 20:25 GFR Calculation Not Reportable 10/29/23 20:25 Glucose 158 mg/dL (65-115) H 10/29/23 20:25 Calculated Osmolality 280 mOsm/kg (285-295) L 10/29/23 20:25 Calcium 10.1 mg/dL (8.5-10.5) 10/29/23 20:25 Total Bilirubin 0.5 mg/dL (0.15-1.2) 10/29/23 20:25 AST 27 U/L (0-40) 10/29/23 20:25 ALT 21 U/L (0-41) 10/29/23 20:25 Alkaline Phosphatase 49 U/L (40-130) 10/29/23 20:25 Troponin T Baseline 92 ng/L (0-15) H 10/29/23 20:25 NT-Pro-B Natriuret Pep 2067 pg/mL (0-450) H 10/29/23 20:25 Total Protein 6.8 g/dL (6.6-8.7) 10/29/23 20:25 Albumin 4.1 g/dL (3.5-5.2) 10/29/23 20:25 Globulin 2.7 g/dL (1.3-4.6) 10/29/23 20:25 XR interpretation done by ED provider, pending radiology final review Discharge Plan Discharge Patient Disposition: Admitted As Inpatient Clinical Impression: Edema, Hypokalemia Congestive heart failure Qualifiers: Heart failure type: unspecified Heart failure chronicity: chronic Qualified Code(s): I50.9 - Heart failure, unspecified Condition: Stable Coding Level of Care Code 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
[2023-10-29 20:50] LABS: Basophils # 0.1 10^3/uL (0.0-0.1); Basophils % 0.9 %; Eosinophils % 0.5 %; Lymphocytes # 2.8 10^3/uL (0.8-4.8); Lymphocytes % 38.4 %; Mean Corpuscular HGB Conc 35.3 g/dL (30-55); Mean Corpuscular Hemoglobin 39.2 pg (27-33); Mean Corpuscular Volume 110.8 fl (82-101); Mean Platelet Volume 9.2 fL (7.4-10.4); Monocytes # 0.8 10^3/uL (0.2-0.9); Monocytes % 10.3 %; Neutrophils # 3.54 10^3/uL (1.8-7.7); Nucleated Red Blood Cells % 0 %; Platelet Count 194 10^3/cmm (157-399); Red Blood Count 3.88 10^6/uL (3.85-5.65); Red Cell Distribution Width 13.6 % (12.1-15.1); White Blood Count 7.39 10^3/uL (3.29-11.43)
[2023-10-29 21:14] LABS: Troponin(5th) Baseline 92 ng/L (0-15)
[2023-10-29 21:24] LABS: Alanine Aminotransferase 21 U/L (0-41); Albumin Level 4.1 g/dL (3.5-5.2); Alkaline Phosphatase 49 U/L (40-130); Blood Urea Nitrogen 19 mg/dL (8-23); Calcium 10.1 mg/dL (8.5-10.5); Carbon Dioxide 27 mmol/L (22-29); Chloride 89 mmol/L (98-107); Globulin 2.7 g/dL (1.3-4.6); Glucose 158 mg/dL (65-115); NT Pro B Type Natriuretic Pept 2067 pg/mL (0-450); Osmolality Calculated 280 mOsm/kg (285-295); Sodium 132 mmol/L (136-145); Total Bilirubin 0.5 mg/dL (0.15-1.2); Total Protein 6.8 g/dL (6.6-8.7)
[2023-10-29 21:31] LABS: Anion Gap 18.7 (5-19)
[2023-10-29 21:32] LABS: Aspartate Amino Transferase 27 U/L (0-40)
[2023-10-29 21:33] LABS: Potassium 2.7 mmol/L (3.5-5.1)
[2023-10-29] MEDS: potassium chloride ER 20 mEq Tablet 40 MEQ PO (21:40)
[2023-10-29] MEDS: potassium chloride premix 100 ML 25 MEQ IV (21:43)
[2023-10-29] MEDS: FUROsemide 10 mg/mL SDV 10mL 80 MG IVP (22:23)
[2023-10-29 22:57] LABS: Troponin 5 2HR 86.36 ng/L (0-15)
[2023-10-29 22:58] LABS: Troponin 5 2HR Delta -5.64 ABS# (0-10)
--- NOTE | 2023-10-29 22:59 | PM.HP ---
Providers/Chief Complaint Admitting Physician: Santiago Freeman MD Primary Care Provider: Farzaneh Bergeron MD Chief Complaint: edema History of Present Illness Wellington Graham is a 88 year old male history of laryngectomy for laryngeal cancer, with tracheostomy, stoma,Uses a voice box, history of CABG history of CHF, history of atrial fibrillation history of myxedema, recent hospitalization for diagnosis with PE placed on Eliquis, history of COPD, who presents [facility] due to shortness of breath and bilateral extremity edema. He says he saw his primary care provider and he was placed on Lasix twice a day but continues to have worsening lower extremity, shortness of breath, denies any chest pain, does report shortness of breath Review of Systems Const: Denies: fever(s) Card: Denies: chest pain Resp: Reports: dyspnea GI: Denies: abdominal pain Medications/Allergies Home Medications Medication Instructions Recorded Confirmed Last Taken Type aspirin 81 mg tablet,delayed 81 mg PO DAILY 11/19/21 09/22/23 Unknown History release (Adult Aspirin Regimen) metoprolol tartrate 25 mg tablet 12.5 mg PO BID 11/19/21 09/22/23 Unknown History rosuvastatin 20 mg tablet 10 mg PO QPM 11/19/21 09/22/23 Unknown History terazosin 2 mg capsule 2 mg PO BEDTIME 11/19/21 09/22/23 Unknown History tiotropium 2.5 mcg-olodaterol 2.5 2 puff inhalation DAILY 11/19/21 09/01/23 Unknown History mcg/actuation mist for inhalation albuterol sulfate 90 mcg/actuation 1 inh inhalation QID PRN COPD 08/06/23 09/22/23 Unknown History aerosol inhaler allopurinol 100 mg tablet 100 mg PO TID 08/06/23 09/22/23 Unknown History chlorhexidine gluconate 0.12 % See Rx Instructions .Route .COMPLEX 08/06/23 09/22/23 Unknown History mouthwash fluticasone 100 mcg-salmeterol 50 1 inh inhalation BID 08/06/23 09/22/23 Unknown History mcg/dose blistr powdr for inhalation (Advair Diskus) furosemide 40 mg tablet 40 mg PO BID 08/06/23 09/22/23 Unknown History gabapentin 400 mg capsule 400 mg PO TID 08/06/23 09/22/23 Unknown History megestrol 400 mg/10 mL (10 mL) 400 mg PO BID 08/06/23 09/01/23 Unknown History oral suspension nut.tx.gluc.intol,lac-free,soy See Rx Instructions .Route .COMPLEX 08/06/23 09/01/23 Unknown History (Glucerna oral liquid) nystatin 100,000 unit/mL oral 10 ml PO TID 08/06/23 09/22/23 Unknown History suspension potassium chloride 20 mEq/15 mL See Rx Instructions .Route .COMPLEX 08/06/23 09/22/23 Unknown History oral liquid prednisone 5 mg tablet 5 mg PO QAM PRN Inflammation/JOINT 08/06/23 09/22/23 Unknown History FLARE levothyroxine 175 mcg tablet 175 mcg PO DAILY 09/01/23 09/22/23 Unknown History lidocaine 5 % topical patch See Rx Instructions .Route .COMPLEX 09/01/23 09/22/23 Unknown History metolazone 2.5 mg tablet 2.5 mg PO BID PRN FLUID RETENTION 09/01/23 09/22/23 Unknown History apixaban 5 mg tablet (Eliquis) 10 mg (2 x 5 mg) PO BID@0900,2100 09/03/23 09/22/23 Unknown Rx #90 tabs hydrocodone 5 mg-acetaminophen 325 See Rx Instructions .Route 09/04/23 09/22/23 Unknown Rx mg tablet .COMPLEX PRN Pain #10 tabs magnesium L-threonate 48 mg 48 mg PO DAILY #90 caps 09/04/23 09/22/23 Unknown Rx magnesium (667 mg) capsule omeprazole 20 mg capsule,delayed 40 mg (2 x 20 mg) PO BID #90 caps 09/04/23 09/22/23 Unknown Rx release leflunomide 20 mg tablet (Arava) 20 mg PO DAILY 09/22/23 09/22/23 Unknown History sulfasalazine 500 mg tablet 500 mg PO BID #180 tabs 10/01/23 Unknown Rx Allergies Allergy/AdvReac Type Severity Reaction Status Date / Time budesonide Allergy Unknown Unknown Verified 09/22/23 13:12 isosorbide Allergy Unknown ADR-Nausea Verified 09/22/23 13:12 oxycodone Allergy Unknown ADR-Itching Verified 09/22/23 13:12 tolmetin Allergy Unknown ALGY-Rash Verified 09/22/23 13:12 PFSH Acute PFSH: Medical History Diastolic CHF Aspiration pneumonia NSTEMI (non-ST elevated myocardial infarction) History of spinal stenosis Atrial fibrillation Peripheral artery disease Coronary artery disease History of myxedema coma COPD (chronic obstructive pulmonary disease) Hypothyroidism Hypokalemia Seropositive rheumatoid arthritis of multiple sites High risk medication use Gout Diabetes Laryngeal cancer Surgical History History of femoropopliteal bypass History of hemorrhoidectomy History of umbilical hernia repair Previous back surgery 1995,1988,1966 H/O heart bypass surgery H/O laryngectomy (09/21/19) Total laryngectomy with bilateral neck dissection and with permanent tracheostomy Family History Other Cancer Diabetes Hypertension Lung disease Stroke Denies family history of Rheumatoid arthritis Lupus CAD (coronary artery disease) Chronic kidney disease (CKD) Social History Smoking and tobacco/nicotine status: former use of tobacco/nicotine Quit status (tobacco/nicotine): has quit using Former quit date comment: smoked x 45 years Vitals/I&O/Wt Last Vital Signs Temp 98.2 F 10/29/23 18:04 Pulse 84 10/29/23 22:00 Resp 21 H 10/29/23 20:42 BP 120/70 10/29/23 22:00 Pulse Ox 99 10/29/23 22:00 O2 Del Method Room Air 10/29/23 22:00 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 Lymph: LYMPHATIC: no lymphadenopathy noted Resp: COMMON NORMALS: normal respiratory effort, No retractions, No use of accessory muscles and clear to auscultation bilaterally AUSCULTATION: clear to auscultation bilaterally Cardio: COMMON NORMALS: regular rate, regular rhythm, S1 normal heart sound present and S2 normal heart sound present RATE: regular rate RHYTHM: regular rhythm HEART SOUNDS: S1 normal heart sound present and S2 normal heart sound present GI: COMMON NORMALS: Normal to inspection, nondistended, normoactive bowel sounds present, Soft to palpation and non-tender Extremity: COMMON NORMALS: no calf tenderness NARRATIVE EXTREMITY EXAM: 4+ pitting edema bilateral extremities Neuro: COMMON NORMALS: patient oriented x3, CN's II-XII intact bilaterally and moves all extremities Psych: COMMON NORMALS: mental status grossly normal Data 10/29/23 20:25 10/29/23 20:25 A&P Assessment and plan (1) CHF exacerbation: (2) Bilateral lower extremity edema: (3) Non-ST elevation [place] (NSTEMI): (4) Hypokalemia: Plan Diastolic CHF exacerbation, with bilateral lower extremity edema, shortness of breath ? Plan ? Has received 80 of Lasix, receiving 80 of potassium total ? Will recheck potassium at 4 AM ? Start Bumex 1 mg every 8 hours starting at 6 AM, with 1 dose of p.o. metolazone ? Potassium 40 p.o. every 12 hours starting at 6 AM ? Fluid restrictions at 1000 cc ? Place Christensen catheter ? Monitor potassium monitor creatinine ? Telemetry monitoring ? History of PE continue Eliquis ? Type 2 diabetes mellitus low-dose sliding scale ? NSTEMI, no chest pain complaints, serial EKGs consult troponins, telemetry monitoring ? Hypothyroidism check TSH continue levothyroxine ? Full code ? Eliquis for DVT prophylaxis Attestations Medical Necessity Statement*: Patient requires hospitalization, inpatient, greater than 2 midnights, for diastolic CHF exacerbation, hypokalemia, requiring IV diuresis Diagnoses CHF exacerbation I50.9 Bilateral lower extremity edema R60.0 Non-ST elevation [place] (NSTEMI) I21.4 Hypokalemia E87.6
[2023-10-29 23:21] LABS: Magnesium 1.5 mg/dL (1.7-2.3)
[2023-10-30] VITALS (9 sets, daily range): BP systolic 104–127; BP diastolic 59–80; PULSE 71–94; RESP 16–24; TEMP 36.3–37.2; O2SAT 93–99
[2023-10-30 00:19] LABS: Add Urine Microscopic? NO; Charge for UA Resulting for Rev
[2023-10-30 00:41] LABS: Bilirubin Urine Neg (Negative); Blood Urine Neg (Negative); Glucose Urine UA Norm (Normal); Ketones Urine Negative (Negative); Leukocyte Esterase Urine Negative (Negative); Nitrate Urine Negative (Negative); Protein Urine Neg (Negative); Specific Gravity, Urine 1.005 (1.005-1.030); Urine Appearance Clear (CLEAR); Urine Color Yellow (Yellow); Urobilinogen Urine Neg (Negative); pH Urine 7 (5-7)
[2023-10-30 00:50] LABS: Vitamin B12 588 pg/mL (232-1245)
[2023-10-30] MEDS: HYDROcodone-acetaminophen 5-325 mg Tablet 1 TAB PO ×4 (00:57→23:43)
[2023-10-30] MEDS: pantoprazole 40 mg SDV IVP ×2 (00:57→23:44)
[2023-10-30] MEDS: apixaban 5 mg Tablet PO ×3 (00:57→20:21)
--- NOTE | 2023-10-30 01:42 | ECG_ITS ---
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 Measurements Intervals [place] Rate: 92 P: 0 VT: 0 QRS: -77 QRSD: 134 T: 118 QT: 403 QTc: 501 Interpretive Statements ATRIAL FIBRILLATION WITH ABERRANT CONDUCTION OR VENTRICULAR PREMATURE COMPLEXES INTRAVENTRICULAR CONDUCTION DELAY [130+ ms QRS DURATION] Compared to ECG 10/29/2023 20:29:13 Left-axis deviation no longer present Myocardial infarct finding no longer present Electronically Signed On 10-30-2023 9:24:32 CDT by Caesar Ulloa M.D. [id number]
[2023-10-30 01:51] LABS: Anion Gap 18.4 (5-19); Blood Urea Nitrogen 17 mg/dL (8-23); Calcium 10.3 mg/dL (8.5-10.5); Carbon Dioxide 28 mmol/L (22-29); Creatinine Clr Calc Pharmacy 78.7401; Troponin 5 6HR 91.03 ng/L (0-15)
[2023-10-30 01:55] LABS: Troponin 5 6HR Delta -0.97 ng/L (0-12)
[2023-10-30 01:56] LABS: Sodium 134 mmol/L (136-145)
[2023-10-30 01:57] LABS: Chloride 90 mmol/L (98-107); Glucose 143 mg/dL (65-115); Osmolality Calculated 282 mOsm/kg (285-295)
[2023-10-30 01:58] LABS: Potassium 2.4 mmol/L (3.5-5.1)
[2023-10-30 02:38] LABS: Folate Level 14.4 ng/mL (4.5-32.2)
[2023-10-30] MEDS: acetaminophen 325 mg Tablet 650 MG PO (03:21)
[2023-10-30] MEDS: lidocaine 1% 5 ML in potassium chloride premix 100 ML 26.25 ML IV ×2 (03:27→07:16)
[2023-10-30] MEDS: levothyroxine 175 mcg Tablet PO (06:05)
[2023-10-30 06:39] LABS: Glucose Point of Care 135 mg/dL (70-110)
--- NOTE | 2023-10-30 09:33 | PC.SOCIAL ---
IMM Update Pg. 2 of IMM updated and reviewed with patient's over the phone who verbalized understanding. Copy provided.
[2023-10-30] MEDS: allopurinol 100 mg Tablet PO ×3 (09:39→20:21)
[2023-10-30] MEDS: gabapentin 400 mg Capsule PO ×3 (09:39→20:20)
[2023-10-30] MEDS: aspirin 81 mg EC Tablet PO (09:40)
[2023-10-30] MEDS: metoprolol tartrate 25 mg Tablet 12.5 MG PO ×2 (09:41→17:28)
[2023-10-30 09:50] LABS: Basophils # 0.1 10^3/uL (0.0-0.1); Basophils % 0.7 %; Eosinophils % 0.4 %; Hematocrit 43.7 % (37-53); Lymphocytes # 1.8 10^3/uL (0.8-4.8); Lymphocytes % 21.7 %; Mean Corpuscular HGB Conc 34.3 g/dL (30-55); Mean Corpuscular Hemoglobin 38.8 pg (27-33); Mean Corpuscular Volume 112.9 fl (82-101); Mean Platelet Volume 9.2 fL (7.4-10.4); Monocytes # 0.9 10^3/uL (0.2-0.9); Monocytes % 10.7 %; Neutrophils # 5.48 10^3/uL (1.8-7.7); Neutrophils % 65.3 %; Nucleated Red Blood Cells % 0 %; Platelet Count 190 10^3/cmm (157-399); Red Blood Count 3.87 10^6/uL (3.85-5.65); Red Cell Distribution Width 13.6 % (12.1-15.1); White Blood Count 8.39 10^3/uL (3.29-11.43)
[2023-10-30 10:07] LABS: Anion Gap 18.5 (5-19); Blood Urea Nitrogen 20 mg/dL (8-23); Calcium 9.8 mg/dL (8.5-10.5); Carbon Dioxide 27 mmol/L (22-29); Chloride 94 mmol/L (98-107); Creatinine Clr Calc Pharmacy 69.7324; Glucose 149 mg/dL (65-115); Magnesium 1.6 mg/dL (1.7-2.3); Osmolality Calculated 287 mOsm/kg (285-295); Phosphorus 2.6 mg/dL (2.5-4.5); Potassium 3.5 mmol/L (3.5-5.1); Sodium 136 mmol/L (136-145)
[2023-10-30 11:19] LABS: Glucose Point of Care 168 mg/dL (70-110)
[2023-10-30] MEDS: potassium chloride ER 20 mEq Tablet PO ×2 (12:21→23:44)
[2023-10-30] MEDS: insulin lispro 100 unit/1 mL SUBCUT ×2 (12:21→17:38)
[2023-10-30] MEDS: bumetanide 0.25 mg/mL SDV 4 mL 1 MG IVP ×2 (12:22→20:21)
--- NOTE | 2023-10-30 14:03 | P.PN_ITS ---
Subjective 2 Subjective: seen this am says his legs have been swelling up Vitals/I&O/Wt Last Vital Signs Temp 98.2 F 10/30/23 11:01 Pulse 73 10/30/23 11:01 Resp 16 10/30/23 11:01 BP 125/69 10/30/23 11:01 Pulse Ox 99 10/30/23 11:01 O2 Del Method Room Air 10/30/23 11:01 10/29/23 10/30/23 10/30/23 22:59 06:59 14:59 Intake Total 540 / 540 445.188 / 445.188 Output Total 1550 / 1550 Balance -1010 / -1010 445.188 / 445.188 Weight last 48 hrs Weight 98.203 kg Weight 99.025 kg Physical Exam 2 Const: COMMON NORMALS: no acute distress and patient oriented x3 HENMT: COMMON NORMALS: normocephalic HEAD & SCALP: normocephalic Neck/C-Spine: COMMON NORMALS: no JVD OTHER: 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 Lymph: LYMPHATIC: no lymphadenopathy noted Resp: COMMON NORMALS: normal respiratory effort, No retractions, No use of accessory muscles and clear to auscultation bilaterally AUSCULTATION: clear to auscultation bilaterally Cardio: COMMON NORMALS: no JVD, regular rate, regular rhythm, S1 normal heart sound present and S2 normal heart sound present RATE: regular rate RHYTHM: regular rhythm HEART SOUNDS: S1 normal heart sound present and S2 normal heart sound present GI: COMMON NORMALS: Normal to inspection, nondistended, normoactive bowel sounds present, Soft to palpation and non-tender PALPATION: Yes Soft to palpation Extremity: COMMON NORMALS: no calf tenderness NARRATIVE EXTREMITY EXAM: 3+ pitting edema bilateral extremities Neuro: COMMON NORMALS: patient oriented x3, CN's II-XII intact bilaterally and moves all extremities Psych: COMMON NORMALS: mental status grossly normal Urinary Catheter Management: Christensen: Cath Placed During This Visit: yes Reason for Continuing Indwelling Catheter: Other Urinary Catheter Date of Insertion: 10/29/23 Urinary Catheter Time of Insertion: 23:10 Data 10/30/23 09:41 10/30/23 09:41 A&P Assessment and plan (1) CHF exacerbation: (2) Bilateral lower extremity edema: (3) Non-ST elevation [place] (NSTEMI): (4) Hypokalemia: Plan Diastolic CHF exacerbation, with bilateral lower extremity edema, shortness of breath ? Plan ? Has received 80 of Lasix, receiving 80 of potassium total ? Will recheck potassium at 4 AM ? Start Bumex 1 mg every 8 hours starting at 6 AM, with 1 dose of p.o. metolazone ? Potassium 40 p.o. every 12 hours starting at 6 AM ? Fluid restrictions at 1000 cc ? Place Christensen catheter ? Monitor potassium monitor creatinine ? Telemetry monitoring ? History of PE continue Eliquis ? Type 2 diabetes mellitus low-dose sliding scale ? NSTEMI, no chest pain complaints, serial EKGs consult troponins, telemetry monitoring ? Hypothyroidism check TSH continue levothyroxine ? Full code ? Eliquis for DVT prophylaxis Continue above management for now. Attestations 2 Medical Necessity Statement*: Patient requires hospitalization, inpatient, greater than 2 midnights, for diastolic CHF exacerbation, hypokalemia, requiring IV diuresis Diagnoses CHF exacerbation I50.9 Bilateral lower extremity edema R60.0 Non-ST elevation [place] (NSTEMI) I21.4 Hypokalemia E87.6
[2023-10-30 17:19] LABS: Glucose Point of Care 199 mg/dL (70-110)
[2023-10-30] MEDS: atorvastatin 40 mg Tablet PO (17:28)
[2023-10-30 20:48] LABS: Glucose Point of Care 141 mg/dL (70-110)
--- NOTE | 2023-10-30 23:34 | USCV_ITS ---
Wellington Graham Age: 88 Gender: M : 1935 Exam Date: 10/30/2023 00:22 Ordering Phys: Santiago Freeman MD Technologist: WARREN Exam Location: [facility] [place] Indication: History of diastolic heart failure, CAD, CABG 2011, afib, COPD, hypokalemia, DM, laryngeal CA s/p tracheostomy. BP: 137 / 82 HR: 82 Rhythm: Atrial Fibrillation Technical Quality: Adequate MEASUREMENTS (Male / Female) Normal Values 2D ECHO LV Diastolic Diameter PLAX 4.8 cm 4.2 - 5.9 / 3.9 - 5.3 cm IVS Diastolic Thickness 1.6 cm 0.6 - 1.0 / 0.6 - 0.9 cm IVS Systolic Thickness 1.9 cm LVPW Diastolic Thickness 1.9 cm 0.6 - 1.0 / 0.6 - 0.9 cm LVPW Systolic Thickness 2.1 cm LVOT Diameter 2.2 cm LV Ejection Fraction 2D Teich 70.1 % LV Ejection Fraction MOD 2C 62.8 % LV Ejection Fraction 2C AL 63.2 % LA Diameter 5.5 cm LA Sys Volume AL 83.3 cm cubed LA Sys Volume Index AL 37.2 cm cubed/m squared Aorta at Sinotubular Diameter 3.7 cm IVC Diameter 1.4 cm M-MODE LA Ao Ratio MM 1.6 AV Cusp Separation MM 2.0 cm DOPPLER AV Peak Velocity 106.0 cm/s LVOT Peak Velocity 73.0 cm/s AV Area Cont Eq vti 2.5 cm squared AV Area Cont Eq pk 2.7 cm squared MV Peak Velocity 87.0 cm/s MV Area PHT 3.2 cm squared Mitral E to A Ratio 0.0 TR Peak Velocity 300.0 cm/s TR Peak Gradient 36.0 mmHg TV Peak E Velocity 60.0 cm/s Right Atrial Pressure 10.0 mmHg Pulmonary Artery Systolic Pressu 46.0 mmHg FINDINGS Left Ventricle Left ventricle is normal in size. LV systolic function is normal with EF of 50-55%. No regional wall motion abnormalities are seen Right Ventricle RV is moderately hypokinetic. Right Atrium Normal in size Left Atrium Dilated Mitral Valve Mild mitral regurgitation. Trace mitral regurgitation. Aortic Valve Aortic valve is thickened. No significant stenosis or regurgitation. Tricuspid Valve Insufficient TR jet to calculate RVSP Pulmonic Valve Not well visualized Pericardium Normal Aorta Normal in size IVC Appears to be normal CONCLUSIONS LV systolic function is normal with EF of 50-55% RV is moderately hypokinetic Left atrial dilation Mild mitral regurgitation Compared to prior echocardiogram from 08/2023, RV is moderately hypokinetic now. Caesar Ulloa MD (Electronically Signed) Final Date: 30 Oct 2023 13:37 S
[2023-10-31] VITALS (9 sets, daily range): BP systolic 114–134; BP diastolic 59–87; PULSE 80–95; RESP 16–20; TEMP 36.8–37.6; O2SAT 95–98
[2023-10-31] MEDS: bumetanide 0.25 mg/mL SDV 4 mL 1 MG IVP ×3 (04:28→20:20)
[2023-10-31] MEDS: levothyroxine 175 mcg Tablet PO (06:23)
[2023-10-31 06:52] LABS: Glucose Point of Care 173 mg/dL (70-110)
[2023-10-31 06:56] LABS: Basophils % 0.5 %; Eosinophils # 0.1 10^3/uL (0.0-0.8); Hematocrit 41.3 % (37-53); Lymphocytes # 0.6 10^3/uL (0.8-4.8); Lymphocytes % 7.9 %; Mean Corpuscular HGB Conc 34.1 g/dL (30-55); Mean Corpuscular Hemoglobin 38.5 pg (27-33); Mean Corpuscular Volume 112.8 fl (82-101); Mean Platelet Volume 9.8 fL (7.4-10.4); Monocytes # 0.4 10^3/uL (0.2-0.9); Monocytes % 5.1 %; Neutrophils # 6.61 10^3/uL (1.8-7.7); Neutrophils % 84.6 %; Nucleated Red Blood Cells % 0 %; Platelet Count 164 10^3/cmm (157-399); Red Blood Count 3.66 10^6/uL (3.85-5.65); Red Cell Distribution Width 13.4 % (12.1-15.1); White Blood Count 7.82 10^3/uL (3.29-11.43)
[2023-10-31 07:16] LABS: Anion Gap 15.5 (5-19); Blood Urea Nitrogen 24 mg/dL (8-23); Calcium 9.4 mg/dL (8.5-10.5); Carbon Dioxide 29 mmol/L (22-29); Chloride 94 mmol/L (98-107); Creatinine Clr Calc Pharmacy 62.9776; Glucose 151 mg/dL (65-115); Magnesium 1.5 mg/dL (1.7-2.3); Osmolality Calculated 289 mOsm/kg (285-295); Sodium 136 mmol/L (136-145)
[2023-10-31 07:18] LABS: Potassium 2.5 mmol/L (3.5-5.1)
[2023-10-31] MEDS: insulin lispro 100 unit/1 mL SUBCUT ×2 (08:52→17:44)
[2023-10-31] MEDS: gabapentin 400 mg Capsule PO ×3 (08:53→20:19)
[2023-10-31] MEDS: apixaban 5 mg Tablet PO ×2 (08:53→20:19)
[2023-10-31] MEDS: allopurinol 100 mg Tablet PO ×3 (08:53→20:19)
[2023-10-31] MEDS: aspirin 81 mg EC Tablet PO (08:53)
[2023-10-31] MEDS: metoprolol tartrate 25 mg Tablet 12.5 MG PO ×2 (08:53→17:42)
[2023-10-31] MEDS: magnesium sulfate premix 4 GM/100 ML PREMIX IV (10:32)
[2023-10-31] MEDS: potassium chloride premix 100 ML 25 MEQ IV (10:33)
[2023-10-31] MEDS: potassium chloride ER 20 mEq Tablet 40 MEQ PO (10:33)
--- NOTE | 2023-10-31 10:46 | CTR_ITS ---
PROCEDURE INFORMATION: Exam: CT Head Without Contrast Exam date and time: 10/31/2023 11:54 AM Age: 88 years old Clinical indication: Injury or trauma; Fall; Blunt trauma (contusions or hematomas); Without loss of consciousness TECHNIQUE: Imaging protocol: Computed tomography of the head without contrast. Radiation optimization: All CT scans at this facility use at least one of these dose optimization techniques: automated exposure control; mA and/or kV adjustment per patient size (includes targeted exams where dose is matched to clinical indication); or iterative reconstruction. COMPARISON: CT head wo con* [id number] 08/06/2023 12:27 PM RADIATION DOSE METRICS: Total DLP (mGy-cm): 969.18 FINDINGS: Brain: Hypodensities bilaterally, nonspecific, but compatible with changes of small vessel disease similar to prior study. Evidence physiologic calcifications basal ganglia bilaterally similar to prior study. No new intracranial mass, midline shift, acute intracranial hemorrhage, nor abnormal extra-axial fluid collections seen. Cerebral ventricles: Prominence of ventricles, sulci similar to prior study. Paranasal sinuses: Mild partial opacification possible polyp or other process, posterior upper nasal passageway and/or ethmoid air cells. Partial opacification with possible fluid sphenoid sinus bilaterally. Mastoid air cells: Stable appearance mastoid air cells bilaterally. Auditory system: Visualized portions middle ear cavities included appear clear bilaterally. Bones: Small rounded cystic lucency of bone upper-outer left orbit, similar to prior study. No displaced, depressed skull fracture seen. Soft tissues: Evidence of vascular calcification soft tissues, scalp bilaterally. Vasculature: Extensive dense arterial calcification. CT/CT head wo con* [id number] IMPRESSION: No acute intracranial abnormality seen. Please see body of report for findings.
--- NOTE | 2023-10-31 11:13 | XRR_ITS ---
PROCEDURE INFORMATION: Exam: XR Left Elbow Exam date and time: 10/31/2023 12:30 PM Age: 88 years old Clinical indication: Injury or trauma; Fall; Blunt trauma (contusions or hematomas); Elbow; Left TECHNIQUE: Imaging protocol: Radiologic exam of the left elbow. Views: 1 or 2 views. COMPARISON: [place] [id number] 10/31/2023 12:26 PM FINDINGS: Bones/joints: No acute fracture or dislocation. Degenerative changes of the left elbow joint noted, manifested by small periarticular osteophytes. Mild swelling of the surrounding soft tissues is present. Small joint effusion noted. Soft tissues: See Bones/joints finding. XR/XR elbow LT 2V [id number] IMPRESSION: No fracture or dislocation.
--- NOTE | 2023-10-31 11:13 | XRR_ITS ---
PROCEDURE INFORMATION: Exam: XR Left Humerus Exam date and time: 10/31/2023 12:26 PM Age: 88 years old Clinical indication: Injury or trauma; Fall; Blunt trauma (contusions or hematomas); Arm, upper; Left TECHNIQUE: Imaging protocol: Radiologic exam of the left humerus. Views: 2 or more views. COMPARISON: CR (CHEST, ) 10/29/2023 9:01 PM FINDINGS: Bones/joints: No fracture or dislocation. Mild degenerative changes of the left shoulder and elbow joints noted. Soft tissues: Normal. XR/[place] [id number] IMPRESSION: No acute fracture or dislocation.
--- NOTE | 2023-10-31 11:13 | XRR_ITS ---
PROCEDURE INFORMATION: Exam: XR Left Forearm Exam date and time: 10/31/2023 12:32 PM Age: 88 years old Clinical indication: Injury or trauma; Fall; Blunt trauma (contusions or hematomas); Arm, lower; Left TECHNIQUE: Imaging protocol: Radiologic exam of the left forearm. Views: 2 views. COMPARISON: CR XR hand LT min 3V* [id number] 11/19/2021 11:17 AM FINDINGS: Bones/joints: No fracture or dislocation. There is mild degenerative changes of the elbow, manifested by small periarticular osteophytes. There is [id number] degenerative changes in the wrist, involving mainly the 1st CMC joint, manifested x joint space narrowing, subchondral sclerosis and periarticular osteophytes. There is a well corticated rounded ossific density projecting over the soft tissues along the posterior aspect of the wrist, likely representing soft tissue calcification. Soft tissues: See Bones/joints finding. Vasculature: Vascular atherosclerotic calcifications seen. XR/XR forearm LT 2V [id number] IMPRESSION: No acute fracture or dislocation.
[2023-10-31 11:41] LABS: Glucose Point of Care 132 mg/dL (70-110)
[2023-10-31] MEDS: HYDROcodone-acetaminophen 5-325 mg Tablet 1 TAB PO ×2 (13:03→19:37)
--- NOTE | 2023-10-31 13:12 | P.PN_ITS ---
Subjective 2 Subjective: Potassium 2.5 this morning. Patient tried to slate picker his phone off the ground and fell out of bed. He fell on his left side. He was complaining of left elbow pain. He states he did not hit his head but might have hit a little bit. Vitals/I&O/Wt Last Vital Signs Temp 98.6 F 10/31/23 11:38 Pulse 85 10/31/23 11:38 Resp 16 10/31/23 11:38 BP 120/70 10/31/23 11:38 Pulse Ox 98 10/31/23 09:36 O2 Del Method Room Air 10/31/23 09:36 10/30/23 10/31/23 10/31/23 22:59 06:59 14:59 Intake Total 480 / 1165.188 0 / 1165.188 240 / 240 Output Total 400 / 400 300 / 700 800 / 800 Balance 80 / 765.188 -300 / 465.188 -560 / -560 Weight last 48 hrs Weight 98.974 kg Weight 98.203 kg Weight 99.025 kg Physical Exam 2 Const: COMMON NORMALS: no acute distress and patient oriented x3 HENMT: COMMON NORMALS: normocephalic HEAD & SCALP: normocephalic Neck/C-Spine: COMMON NORMALS: no JVD OTHER: 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 Lymph: LYMPHATIC: no lymphadenopathy noted Resp: COMMON NORMALS: normal respiratory effort, No retractions, No use of accessory muscles and clear to auscultation bilaterally AUSCULTATION: clear to auscultation bilaterally Cardio: COMMON NORMALS: no JVD, regular rate, regular rhythm, S1 normal heart sound present and S2 normal heart sound present RATE: regular rate RHYTHM: regular rhythm HEART SOUNDS: S1 normal heart sound present and S2 normal heart sound present GI: COMMON NORMALS: Normal to inspection, nondistended, normoactive bowel sounds present, Soft to palpation and non-tender PALPATION: Yes Soft to palpation Extremity: COMMON NORMALS: no calf tenderness NARRATIVE EXTREMITY EXAM: 3+ pitting edema bilateral extremities m ore so my ankles. She has 1+ edema bilaterally Neuro: COMMON NORMALS: patient oriented x3, CN's II-XII intact bilaterally and moves all extremities Psych: COMMON NORMALS: mental status grossly normal Urinary Catheter Management: Christensen: Cath Placed During This Visit: yes Reason for Continuing Indwelling Catheter: Other Urinary Catheter Date of Insertion: 10/29/23 Urinary Catheter Time of Insertion: 23:10 Data 10/31/23 06:15 10/31/23 06:15 A&P Assessment and plan (1) CHF exacerbation: (2) Bilateral lower extremity edema: (3) Non-ST elevation NV (NSTEMI): (4) Hypokalemia: Plan Diastolic CHF exacerbation, with bilateral lower extremity edema, shortness of breath ? Plan ? Has received 80 of Lasix, receiving 80 of potassium total ? Will recheck potassium at 4 AM ? Continue Bumex 1 mg IV every 8 hours. ? Replete potassium today. ? Check CT head without contrast ? Ordered magnesium 4 mg IV ? Check humerus x-ray forearm x-ray, elbow x-ray left side ?Continue potassium 40 oral daily ? Fluid restrictions at 1000 cc ? Place Christensen catheter ? Monitor potassium monitor creatinine ? Telemetry monitoring ? History of PE continue Eliquis ? Type 2 diabetes mellitus low-dose sliding scale ? NSTEMI, no chest pain complaints, serial EKGs consult troponins, telemetry monitoring ? Hypothyroidism check TSH continue levothyroxine ? Full code ? Eliquis for DVT prophylaxis ? Patient is diuresing well. Clinically improving. Plan to discharge in next 24 to 48 hours if continues to improve. Continue above management for now. Attestations 2 Medical Necessity Statement*: Patient requires hospitalization, inpatient, greater than 2 midnights, for diastolic CHF exacerbation, hypokalemia, requiring IV diuresis Diagnoses CHF exacerbation I50.9 Bilateral lower extremity edema R60.0 Non-ST elevation NV (NSTEMI) I21.4 Hypokalemia E87.6
[2023-10-31] MEDS: lactulose oral liq 20 gm/30 mL UDC PO (16:05)
[2023-10-31 16:57] LABS: Glucose Point of Care 145 mg/dL (70-110)
[2023-10-31] MEDS: atorvastatin 40 mg Tablet PO (17:42)
[2023-10-31 20:35] LABS: Glucose Point of Care 197 mg/dL (70-110)
[2023-10-31] MEDS: pantoprazole 40 mg SDV IVP (23:56)
[2023-11-01] VITALS (11 sets, daily range): BP systolic 109–146; BP diastolic 62–86; PULSE 72–89; RESP 17–18; TEMP 36.4–37.9; O2SAT 93–97
[2023-11-01] MEDS: bumetanide 0.25 mg/mL SDV 4 mL 1 MG IVP ×3 (04:22→20:59)
[2023-11-01] MEDS: levothyroxine 175 mcg Tablet PO (06:04)
[2023-11-01] MEDS: HYDROcodone-acetaminophen 5-325 mg Tablet 1 TAB PO ×4 (06:05→20:59)
[2023-11-01 06:51] LABS: Glucose Point of Care 152 mg/dL (70-110)
[2023-11-01 07:25] LABS: Basophils % 0.3 %; Eosinophils % 0.3 %; Lymphocytes # 0.5 10^3/uL (0.8-4.8); Mean Corpuscular HGB Conc 33.8 g/dL (30-55); Mean Corpuscular Hemoglobin 38.8 pg (27-33); Mean Corpuscular Volume 114.7 fl (82-101); Mean Platelet Volume 9.7 fL (7.4-10.4); Monocytes # 0.6 10^3/uL (0.2-0.9); Monocytes % 8.8 %; Neutrophils # 5.21 10^3/uL (1.8-7.7); Neutrophils % 81.5 %; Nucleated Red Blood Cells % 0 %; Platelet Count 146 10^3/cmm (157-399); Red Cell Distribution Width 13.7 % (12.1-15.1); White Blood Count 6.39 10^3/uL (3.29-11.43)
[2023-11-01 07:45] LABS: Anion Gap 15.2 (5-19); Blood Urea Nitrogen 26 mg/dL (8-23); Calcium 9.6 mg/dL (8.5-10.5); Carbon Dioxide 24 mmol/L (22-29); Chloride 96 mmol/L (98-107); Glucose 162 mg/dL (65-115); Osmolality Calculated 284 mOsm/kg (285-295); Sodium 133 mmol/L (136-145)
[2023-11-01 08:22] LABS: Potassium 2.2 mmol/L (3.5-5.1)
--- NOTE | 2023-11-01 08:47 | P.PN_ITS ---
Subjective 2 Subjective: K 2.2 this am , oral and IV ordered says he feels constipated. was given lactulose yesterday and another dose this am. - 2.3L net balance today feels better Left arm xray report pending Vitals/I&O/Wt Last Vital Signs Temp 97.5 F L 11/01/23 08:45 Pulse 89 11/01/23 08:45 Resp 18 11/01/23 08:45 BP 123/72 11/01/23 08:45 Pulse Ox 93 11/01/23 08:45 O2 Del Method Room Air 11/01/23 08:45 10/31/23 11/01/23 11/01/23 22:59 06:59 14:59 Intake Total 200 / 440 Output Total 1400 / 2200 Balance 200 / -360 -1400 / -1760 Weight last 48 hrs Weight 94.12 kg Weight 98.974 kg Physical Exam 2 Const: COMMON NORMALS: no acute distress and patient oriented x3 HENMT: COMMON NORMALS: normocephalic HEAD & SCALP: normocephalic Neck/C-Spine: COMMON NORMALS: no JVD OTHER: 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 Lymph: LYMPHATIC: no lymphadenopathy noted Resp: COMMON NORMALS: normal respiratory effort, No retractions, No use of accessory muscles and clear to auscultation bilaterally AUSCULTATION: clear to auscultation bilaterally Cardio: COMMON NORMALS: no JVD, regular rate, regular rhythm, S1 normal heart sound present and S2 normal heart sound present RATE: regular rate RHYTHM: regular rhythm HEART SOUNDS: S1 normal heart sound present and S2 normal heart sound present GI: COMMON NORMALS: Normal to inspection, nondistended, normoactive bowel sounds present, Soft to palpation and non-tender PALPATION: Yes Soft to palpation Extremity: COMMON NORMALS: no calf tenderness NARRATIVE EXTREMITY EXAM: 2+ pitting edema bilateral extremities m ore so pedal Neuro: COMMON NORMALS: patient oriented x3, CN's II-XII intact bilaterally and moves all extremities Psych: COMMON NORMALS: mental status grossly normal Urinary Catheter Management: Christensen: Cath Placed During This Visit: yes Reason for Continuing Indwelling Catheter: Other Urinary Catheter Date of Insertion: 10/29/23 Urinary Catheter Time of Insertion: 23:10 Data 11/01/23 07:13 11/01/23 07:13 A&P Assessment and plan (1) CHF exacerbation: (2) Bilateral lower extremity edema: (3) Non-ST elevation [place] (NSTEMI): (4) Hypokalemia: (5) Hypertension: (6) Congestive heart failure: Qualifiers: Heart failure chronicity: chronic Heart failure type: unspecified Qualified Code(s): I50.9 - Heart failure, unspecified (7) CAD (coronary artery disease): (8) Hypothyroidism: (9) Diabetes: (10) Edema: Plan #Diastolic CHF exacerbation, with bilateral lower extremity edema, shortness of breath #Severe hypokalemia #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 DIscussed with cardiology. F/U outpatient. - recheck BMP at 6 pm ? Patient is diuresing well. Clinically improving. Plan to discharge in next 24 to 48 hours if continues to improve. Continue above management for now. Full Code Attestations 2 Medical Necessity Statement*: Patient requires hospitalization, inpatient, greater than 2 midnights, for diastolic CHF exacerbation, hypokalemia, requiring IV diuresis Diagnoses CHF exacerbation I50.9 Bilateral lower extremity edema R60.0 Non-ST elevation [place] (NSTEMI) I21.4 Hypokalemia E87.6 Hypertension I10 Congestive heart failure I50.9 Heart failure chronicity: chronic Heart failure type: unspecified CAD (coronary artery disease) I25.10 Hypothyroidism E03.9 Diabetes E11.9 Edema R60.9
[2023-11-01] MEDS: insulin lispro 100 unit/1 mL SUBCUT ×3 (09:40→17:18)
[2023-11-01] MEDS: allopurinol 100 mg Tablet PO ×3 (09:41→20:59)
[2023-11-01] MEDS: gabapentin 400 mg Capsule PO ×3 (09:41→20:59)
[2023-11-01] MEDS: metoprolol tartrate 25 mg Tablet 12.5 MG PO ×2 (09:41→17:17)
[2023-11-01] MEDS: lactulose oral liq 20 gm/30 mL UDC PO (09:41)
[2023-11-01] MEDS: apixaban 5 mg Tablet PO ×2 (09:41→20:59)
[2023-11-01] MEDS: aspirin 81 mg EC Tablet PO (09:41)
[2023-11-01] MEDS: potassium chloride premix 100 ML 25 MEQ IV ×2 (09:45→14:43)
[2023-11-01] MEDS: potassium chloride ER 20 mEq Tablet 40 MEQ PO (09:45)
[2023-11-01 11:29] LABS: Glucose Point of Care 156 mg/dL (70-110)
[2023-11-01] MEDS: acetaminophen 325 mg Tablet 650 MG PO (14:44)
[2023-11-01 15:58] LABS: Anion Gap 16.6 (5-19); Blood Urea Nitrogen 26 mg/dL (8-23); Calcium 9.8 mg/dL (8.5-10.5); Carbon Dioxide 26 mmol/L (22-29); Chloride 96 mmol/L (98-107); Creatinine Clr Calc Pharmacy 61.6023; Glucose 165 mg/dL (65-115); Osmolality Calculated 290 mOsm/kg (285-295); Sodium 136 mmol/L (136-145)
[2023-11-01 16:07] LABS: Potassium 2.6 mmol/L (3.5-5.1)
[2023-11-01 16:21] LABS: Glucose Point of Care 182 mg/dL (70-110)
[2023-11-01] MEDS: atorvastatin 40 mg Tablet PO (17:17)
[2023-11-01 21:00] LABS: Glucose Point of Care 191 mg/dL (70-110)
[2023-11-01] MEDS: potassium chloride oral liq 20 mEq/15 mL UDC 40 MEQ PO (21:04)
[2023-11-02] VITALS (7 sets, daily range): BP systolic 115–139; BP diastolic 63–70; PULSE 73–95; RESP 16–22; TEMP 36.6–37; O2SAT 91–96
[2023-11-02] MEDS: pantoprazole 40 mg SDV IVP (00:03)
[2023-11-02 03:23] LABS: Basophils % 0.4 %; Eosinophils % 0.5 %; Hematocrit 37.5 % (37-53); Lymphocytes # 1.5 10^3/uL (0.8-4.8); Lymphocytes % 19.4 %; Mean Corpuscular HGB Conc 33.9 g/dL (30-55); Mean Corpuscular Hemoglobin 38.3 pg (27-33); Mean Platelet Volume 9.6 fL (7.4-10.4); Monocytes # 0.9 10^3/uL (0.2-0.9); Monocytes % 11.4 %; Neutrophils # 5.22 10^3/uL (1.8-7.7); Neutrophils % 67.1 %; Nucleated Red Blood Cells % 0 %; Platelet Count 134 10^3/cmm (157-399); Red Blood Count 3.32 10^6/uL (3.85-5.65); Red Cell Distribution Width 13.5 % (12.1-15.1); White Blood Count 7.78 10^3/uL (3.29-11.43)
[2023-11-02 03:46] LABS: Anion Gap 15.7 (5-19); Blood Urea Nitrogen 29 mg/dL (8-23); Calcium 9.2 mg/dL (8.5-10.5); Carbon Dioxide 27 mmol/L (22-29); Chloride 96 mmol/L (98-107); Glucose 160 mg/dL (65-115); Magnesium 1.8 mg/dL (1.7-2.3); Osmolality Calculated 291 mOsm/kg (285-295); Sodium 136 mmol/L (136-145)
[2023-11-02 03:49] LABS: Potassium 2.7 mmol/L (3.5-5.1)
--- NOTE | 2023-11-02 04:57 | PC.NURSE ---
Patient's potassium was 2.7 this morning. Physician notified. Physician ordered 40 meq PO Klor-Con once. Plan of care ongoing.
[2023-11-02] MEDS: potassium chloride ER 20 mEq Tablet 40 MEQ PO (05:08)
[2023-11-02] MEDS: bumetanide 0.25 mg/mL SDV 4 mL 1 MG IVP (05:08)
[2023-11-02] MEDS: levothyroxine 175 mcg Tablet PO (05:50)
[2023-11-02 06:32] LABS: Glucose Point of Care 173 mg/dL (70-110)
[2023-11-02] MEDS: insulin lispro 100 unit/1 mL SUBCUT ×3 (08:05→16:58)
[2023-11-02] MEDS: metoprolol tartrate 25 mg Tablet 12.5 MG PO ×2 (08:05→16:59)
[2023-11-02] MEDS: potassium chloride oral liq 20 mEq/15 mL UDC 80 MEQ PO ×3 (08:05→16:58)
[2023-11-02] MEDS: gabapentin 400 mg Capsule PO ×3 (08:05→20:34)
[2023-11-02] MEDS: aspirin 81 mg EC Tablet PO (08:06)
[2023-11-02] MEDS: HYDROcodone-acetaminophen 5-325 mg Tablet 1 TAB PO ×2 (08:06→12:06)
[2023-11-02] MEDS: albuterol 2.5 mg/3 mL Neb INHALATION ×2 (08:06→16:44)
[2023-11-02] MEDS: allopurinol 100 mg Tablet PO ×3 (08:06→20:34)
[2023-11-02] MEDS: apixaban 5 mg Tablet PO ×2 (08:06→20:34)
--- NOTE | 2023-11-02 09:30 | PC.CHAP ---
Pastoral Care Encounter/Spiritual Assessment Type of Contact [] Declined housekeeping room inspector visit [] Patient/Family/Request visit [] Outpatient visit [] Follow-up visit [] Physician referral [] Code/Alert [x] Routine visit [] Staff referral [] Actively dying [] Patient sleeping [] Family support [] [] Out of room [] Palliative care [] [] Receiving care in room [] Pre-surgical visit [] Trauma [] Long length of stay [] ICU visit [] Other: Relational/Emotional Strength [] Patient feels connected with others/family/visitors/staff [] Distress [] Loneliness/isolation [] Abandonment Spirituality of Patient [x] Person of Jocelyne [] Attends Christianity of their Jocelyne [x] Believes in Prayer [] Reads Bible or Sikh materials [] There are Spiritual issues to be addressed Civil Clerk Interventions [x] Prayer [x] Active listening [] Non-anxious presence [] Spiritual/emotional support [] Crisis/trauma care [] Spiritual counseling [] Bereavement support [] Provided bereavement packet [] Provided Bible/devotional materials [] Provided toy/stuffed animal, coloring book to patient or family member [] Provided Communion [] Anointing/[place] [] Salvation [x] Completed spiritual assessment [] Other: Impact on Illness or Injury [] Angry [] Fearful [] Anxious [] Often cries [] Exhaustion [] Unable to work [] Unable to attend mormonism [] Unable to walk/stand [] Unable to read [] Unable to drive [] Unable to eat/drink [] Unable to sleep [] Unable to be with family [] Patient intubated [] Other: Summary Time spent with patient 15 min
--- NOTE | 2023-11-02 11:30 | P.DS_ITS ---
Discharge Providers Date of Admission: 10/29/23 21:43 Date of Discharge: November 02, 2023 Attending Provider at Admission: Santiago Freeman MD Attending Provider at Discharge: Randi Currie MD Primary Care Provider: Farzaneh Bergeron MD Diagnoses at Discharge Discharge Diagnosis (1) CHF exacerbation: Status: Acute (2) Bilateral lower extremity edema: Status: Acute (3) Non-ST elevation [place] (NSTEMI): Status: Acute (4) Hypokalemia: Status: Acute (5) Hypertension: Status: Acute (6) Congestive heart failure: Status: Acute Qualifiers: Heart failure chronicity: chronic Heart failure type: unspecified Qualified Code(s): I50.9 - Heart failure, unspecified (7) CAD (coronary artery disease): Status: Acute (8) Hypothyroidism: Status: Acute (9) Diabetes: Status: Acute (10) Edema: Status: Acute Reason for Visit Reason for Visit: edema Hospital Course Hospital Course Patient was admitted for CHF exacerbation. He was placed on IV Bumex every 8 hours in the hospital. He diuresed quite well and is net 2 L negative since admission. Pedal edema has resolved. Echo did show hypokinetic right ventricle however he denies any chest pain. He is to follow-up with cardiology as an outpatient. I did discuss with cardiology during hospital stay. No further workup indicated at this time. Patient has a known history of heart failure from prior. He remained hypokalemic however it is noted that he takes up to 80 mill equivalents 3 times a day at home and has a known history of hypokalemia. He is to discharge on the same. Patient did have 2 falls during hospital stay since he tried to get out of bed and to pick things off the floor. PT has been ordered. Switch his diuretic back to oral today. Patient to [facility] home in stable condition with follow-up with cardiology outpatient. If he qualifies for rehab we will talk to him about half-way placement. 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 Lymph: LYMPHATIC: no lymphadenopathy noted Resp: COMMON NORMALS: normal respiratory effort, No retractions, No use of accessory muscles and clear to auscultation bilaterally AUSCULTATION: clear to auscultation bilaterally Cardio: COMMON NORMALS: no JVD, regular rate, regular rhythm, S1 normal heart sound present and S2 normal heart sound present RATE: regular rate RHYTHM: regular rhythm HEART SOUNDS: S1 normal heart sound present and S2 normal heart sound present GI: COMMON NORMALS: Normal to inspection, nondistended, normoactive bowel sounds present, Soft to palpation and non-tender PALPATION: Yes Soft to palpation Extremity: COMMON NORMALS: no calf tenderness NARRATIVE EXTREMITY EXAM: Trace pedal edema present bilaterally. Neuro: COMMON NORMALS: patient oriented x3, CN's II-XII intact bilaterally and moves all extremities Psych: COMMON NORMALS: mental status grossly normal Urinary Catheter Management: Christensen: Cath Placed During This Visit: yes Reason for Continuing Indwelling Catheter: Other Urinary Catheter Date of Insertion: 10/29/23 Urinary Catheter Time of Insertion: 23:10 Discharge Data Studies Completed and Pending Completed Studies During Hospitalization Category Date Time Status CT head wo con* [id number] Stat Cat Scan 10/31/23 10:46 Completed XR chest 1V [id number] Stat Exams 10/29/23 19:42 Completed XR elbow LT 2V [id number] Routine Exams 10/31/23 11:13 Completed XR forearm LT 2V [id number] Routine Exams 10/31/23 11:13 [place] [id number] Routine Exams 10/31/23 11:13 Completed CV. echo complete* [id number] Routine Ultrasound 10/30/23 23:34 Completed Radiology Impressions Chest X-Ray 10/29/23 19:42 IMPRESSION: 1. No definite CHF or pneumonia. 2. Other findings discussed above. Head CT 10/31/23 10:46 IMPRESSION: No acute intracranial abnormality seen. Please see body of report for findings. Elbow X-Ray 10/31/23 11:13 IMPRESSION: No fracture or dislocation. Forearm X-Ray 10/31/23 11:13 IMPRESSION: No acute fracture or dislocation. Humerus X-Ray 10/31/23 11:13 IMPRESSION: No acute fracture or dislocation. Laboratory Results WBC 7.78 10^3/uL (3.29-11.43) 11/02/23 03:06 RBC 3.32 10^6/uL (3.85-5.65) L 11/02/23 03:06 Hgb 12.70 g/dL (11.27-16.99) 11/02/23 03:06 Hct 37.5 % (37-53) 11/02/23 03:06 MCV 113.0 fl (82-101) H 11/02/23 03:06 MCH 38.3 pg (27-33) H 11/02/23 03:06 MCHC 33.9 g/dL (30-55) 11/02/23 03:06 RDW 13.5 % (12.1-15.1) 11/02/23 03:06 Plt Count 134 10^3/cmm (157-399) L 11/02/23 03:06 MPV 9.6 fL (7.4-10.4) 11/02/23 03:06 Neut % (Auto) 67.1 % 11/02/23 03:06 Lymph % (Auto) 19.4 % 11/02/23 03:06 [place] % (Auto) 11.4 % 11/02/23 03:06 Eos % (Auto) 0.5 % 11/02/23 03:06 Baso % (Auto) 0.4 % 11/02/23 03:06 Neut # (Auto) 5.22 10^3/uL (1.8-7.7) 11/02/23 03:06 Lymph # (Auto) 1.5 10^3/uL (0.8-4.8) 11/02/23 03:06 [place] # (Auto) 0.9 10^3/uL (0.2-0.9) 11/02/23 03:06 Eos # (Auto) 0.0 10^3/uL (0.0-0.8) 11/02/23 03:06 Baso # (Auto) 0.0 10^3/uL (0.0-0.1) 11/02/23 03:06 Nucleated RBC % (auto) 0 % 11/02/23 03:06 Nucleated RBCs # 0.0 /100WBC 11/02/23 03:06 Sodium 136 mmol/L (136-145) 11/02/23 03:06 Potassium 2.7 mmol/L (3.5-5.1) L* 11/02/23 03:06 Chloride 96 mmol/L (98-107) L 11/02/23 03:06 Carbon Dioxide 27 mmol/L (22-29) 11/02/23 03:06 Anion Gap 15.7 (5-19) 11/02/23 03:06 BUN 29 mg/dL (8-23) H 11/02/23 03:06 Creatinine 0.9 mg/dL (0.7-1.2) 11/02/23 03:06 GFR Calculation Not Reportable 11/02/23 03:06 Glucose 160 mg/dL (65-115) H 11/02/23 03:06 POC Glucose 173 mg/dL (70-110) H 11/02/23 06:27 Calculated Osmolality 291 mOsm/kg (285-295) 11/02/23 03:06 Calcium 9.2 mg/dL (8.5-10.5) 11/02/23 03:06 Phosphorus 2.6 mg/dL (2.5-4.5) 10/30/23 09:41 Magnesium 1.8 mg/dL (1.7-2.3) 11/02/23 03:06 Total Bilirubin 0.5 mg/dL (0.15-1.2) 10/29/23 20:25 AST 27 U/L (0-40) 10/29/23 20:25 ALT 21 U/L (0-41) 10/29/23 20:25 Alkaline Phosphatase 49 U/L (40-130) 10/29/23 20:25 Troponin T Baseline 92 ng/L (0-15) H 10/29/23 20:25 Troponin T 120 Minute 86.36 ng/L (0-15) H 10/29/23 22:28 Delta Troponin T -5.64 ABS# (0-10) L 10/29/23 22:28 Troponin T Hi Sens 6Hr 91.03 ng/L (0-15) H 10/30/23 01:21 Troponin T Hi Sens 6Hr Delta -0.97 ng/L (0-12) L 10/30/23 01:21 NT-Pro-B Natriuret Pep 2067 pg/mL (0-450) H 10/29/23 20:25 Total Protein 6.8 g/dL (6.6-8.7) 10/29/23 20:25 Albumin 4.1 g/dL (3.5-5.2) 10/29/23 20:25 Globulin 2.7 g/dL (1.3-4.6) 10/29/23 20:25 Vitamin B12 588 pg/mL (232-1245) 10/29/23 22:28 Folate 14.4 ng/mL (4.5-32.2) 10/30/23 01:21 TSH 7.90 uIU/mL (0.27-4.20) H 10/29/23 22:28 Urine Color Yellow (Yellow) 10/29/23 22:15 Urine Appearance Clear (CLEAR) 10/29/23 22:15 Urine pH 7 (5-7) 10/29/23 22:15 Ur Specific [place] 1.005 (1.005-1.030) 10/29/23 22:15 Urine Protein Neg (Negative) 10/29/23 22:15 Urine Glucose (UA) Norm (Normal) 10/29/23 22:15 Urine Ketones Negative (Negative) 10/29/23 22:15 Urine Blood Neg (Negative) 10/29/23 22:15 Urine Nitrate Negative (Negative) 10/29/23 22:15 Urine Bilirubin Neg (Negative) 10/29/23 22:15 Urine Urobilinogen Neg mg/dL (Negative) 10/29/23 22:15 Ur Leukocyte Esterase Negative (Negative) 10/29/23 22:15 Vitals Last Vital Signs Temp 97.9 F 11/02/23 07:09 Pulse 78 11/02/23 08:16 Resp 22 H 11/02/23 08:16 BP 129/68 11/02/23 07:09 Pulse Ox 94 11/02/23 08:16 O2 Del Method Room Air 11/02/23 08:16 Discharge Plan Discharge Patient Disposition: Home Condition: Stable Prescriptions: New furosemide [Lasix] 20 mg tablet 60 mg PO BID Qty: 120 0RF Eliquis 5 mg Tablet 5 mg PO BID@0900,2100 Qty: 60 0RF Continued tiotropium-olodaterol 2.5-2.5 mcg/actuation mist 2 puff inhalation DAILY rosuvastatin 20 mg tablet 10 mg PO QPM terazosin 2 mg capsule 2 mg PO BEDTIME aspirin [Adult Aspirin Regimen] 81 mg tablet,delayed release (DR/EC) 81 mg PO DAILY metoprolol tartrate 25 mg tablet 12.5 mg PO BID leflunomide [Arava] 20 mg tablet 20 mg PO DAILY sulfasalazine 500 mg tablet 500 mg PO BID Qty: 180 0RF nystatin 100,000 unit/mL Suspension 10 ml PO TID Rx Instructions: swish and swallow potassium chloride 20 mEq/15 mL Liquid See Rx Instructions .ROUTE .COMPLEX Rx Instructions: TAKE 60 ML BY MOUTH 3 TIMES DAILY AND 30 ML AT BEDTIME FOR HYPOKALEMIA. MIX EACH 15 ML WITH AT LEAST 6 OZ WATER/JUICE BEFORE TAKING. fluticasone propion-salmeterol [Advair Diskus] 100-50 mcg/dose Blister With Device 1 inh INHALATION BID albuterol sulfate 90 mcg/actuation Hfa Aerosol Inhaler 1 inh INHALATION QID PRN (Reason: COPD) Glucerna Liquid See Rx Instructions .ROUTE .COMPLEX Rx Instructions: 2 CANFULS BY MOUTH ONCE DAILY FOR NUTRITIONAL SUPPLEMENTATION. chlorhexidine gluconate 0.12 % Mouthwash See Rx Instructions .ROUTE .COMPLEX Rx Instructions: SWISH IN MOUTH FOR 30 SECONDS AND SPIT 15 ML BY MOUTH TWICE DAILY FOR PERIODONTITIS megestrol 400 mg/10 mL (10 mL) Suspension 400 mg PO BID gabapentin 400 mg Capsule 400 mg PO TID allopurinol 100 mg Tablet 100 mg PO TID prednisone 5 mg tablet 5 mg PO QAM PRN (Reason: Inflammation/JOINT FLARE) metolazone 2.5 mg Tablet 2.5 mg PO BID PRN (Reason: FLUID RETENTION) lidocaine 5 % Adhesive Patch,Medicated See Rx Instructions .ROUTE .COMPLEX Rx Instructions: APPLY 1 PATCH TO SKIN SITE ONCE DAILY. KEEP ON FOR 12 HOURS, THEN REMOVE PATCH FOR 12 HOURS. levothyroxine 175 mcg Tablet 175 mcg PO DAILY magnesium L-threonate 48 mg magnesium (667 mg) capsule 48 mg PO DAILY Qty: 90 0RF omeprazole 20 mg Capsule,Delayed Release(Dr/Ec) 40 mg PO BID Qty: 90 0RF hydrocodone-acetaminophen 5-325 mg tablet See Rx Instructions .ROUTE .COMPLEX PRN (Reason: Pain) Qty: 10 0RF Rx Instructions: TAKE 1 TABLET BY MOUTH EVERY 4 TO 6 HOURS NEEDED FOR PAIN. MAX OF 3 PER DAY. HOLD WITHIN 4 HOURS OF PLANNED SLEEP. MUST LAST 30 DAYS. DO NOT EXVEED 4000 MG PER DAY OF ACETAMINOPHEN FROM ALL MEDS. Discontinued furosemide 40 mg Tablet 40 mg PO BID Eliquis 5 mg Tablet 10 mg PO BID@0900,2100 Qty: 90 0RF Rx Instructions: Take 10mg twice daily for 7 days then continue 5mg twice daily from there. Referrals: Farzaneh Bergeron MD [Primary Care Provider] - 1-3 days Radha Stallings FNP [Nurse Practitioner] - 7-10 days Caesar Ulloa M.D [Physician] - 1 month Discharge Diet: Cardiac Discharge Activity: Resume usual activity Patient Instructions: Opioid Safety Discharge Attestations Time Spent in Discharge Care*: greater than 30 min Quality Metrics Clinical Quality Measures [ No reported AMI, CVA or VTE this stay] Coding Level of Care Code Acute Code for Chg Fwd Diagnoses CHF exacerbation I50.9 Bilateral lower extremity edema R60.0 Non-ST elevation IN (NSTEMI) I21.4 Hypokalemia E87.6 Hypertension I10 Congestive heart failure I50.9 Heart failure chronicity: chronic Heart failure type: unspecified CAD (coronary artery disease) I25.10 Hypothyroidism E03.9 Diabetes E11.9 Edema R60.9
[2023-11-02 11:32] LABS: Glucose Point of Care 179 mg/dL (70-110)
--- NOTE | 2023-11-02 14:25 | PC.SOCIAL ---
IMM Updated Updated pt on IMM. No questions voiced. Provided pt a copy. Initialed, dated, & timed copy in chart.
[2023-11-02 16:00] LABS: Glucose Point of Care 172 mg/dL (70-110)
[2023-11-02] MEDS: FUROsemide 40 mg Tablet 60 MG PO (16:59)
[2023-11-02] MEDS: atorvastatin 40 mg Tablet PO (16:59)
[2023-11-02 17:36] LABS: Anion Gap 19.4 (5-19); Blood Urea Nitrogen 26 mg/dL (8-23); Calcium 9.3 mg/dL (8.5-10.5); Carbon Dioxide 24 mmol/L (22-29); Chloride 100 mmol/L (98-107); Glucose 174 mg/dL (65-115); Osmolality Calculated 297 mOsm/kg (285-295); Potassium 4.4 mmol/L (3.5-5.1); Sodium 139 mmol/L (136-145)
[2023-11-02] MEDS: potassium chloride oral liq 20 mEq/15 mL UDC 40 MEQ PO (20:34)
[2023-11-02 20:46] LABS: Glucose Point of Care 166 mg/dL (70-110)
[2023-11-03] VITALS: BP 131/73; PULSE 95; RESP 19; TEMP 37; O2SAT 97
[2023-11-03 00:30] VITALS: PULSE 81; RESP 18; O2SAT 95
[2023-11-03] MEDS: pantoprazole 40 mg SDV IVP (00:38)
[2023-11-03 04:00] VITALS: BP 118/59; PULSE 88; RESP 19; TEMP 36.9; O2SAT 95
[2023-11-03] MEDS: acetaminophen 325 mg Tablet 650 MG PO ×2 (04:11→10:56)
[2023-11-03] MEDS: levothyroxine 175 mcg Tablet PO (06:12)
[2023-11-03 07:26] VITALS: BP 134/64; PULSE 87; RESP 18; TEMP 36.4; O2SAT 96
[2023-11-03 08:18] VITALS: PULSE 83; RESP 16; O2SAT 96
[2023-11-03] MEDS: potassium chloride oral liq 20 mEq/15 mL UDC 80 MEQ PO ×2 (09:47→12:35)
[2023-11-03] MEDS: apixaban 5 mg Tablet PO (09:47)
[2023-11-03] MEDS: allopurinol 100 mg Tablet PO (09:47)
[2023-11-03] MEDS: aspirin 81 mg EC Tablet PO (09:47)
[2023-11-03] MEDS: gabapentin 400 mg Capsule PO (09:47)
[2023-11-03] MEDS: FUROsemide 40 mg Tablet 60 MG PO (09:48)
[2023-11-03] MEDS: insulin lispro 100 unit/1 mL SUBCUT ×2 (09:49→12:34)
[2023-11-03] MEDS: metoprolol tartrate 25 mg Tablet 12.5 MG PO (09:50)
[2023-11-03 10:56] LABS: SARS Covid-2 Antigen negative (Negative)
[2023-11-03 11:48] VITALS: BP 124/61; PULSE 86; RESP 20; TEMP 37.3; O2SAT 96
[2023-11-04 03:47] LABS: Glucose Point of Care 165 mg/dL (70-110)
[2023-11-04 03:47] LABS: Glucose Point of Care 144 mg/dL (70-110)
[2023-11-04 03:47] LABS: Glucose Point of Care 183 mg/dL (70-110)
== END 2023-11-03 14:31 | DRG 291 ==
LOC: ER 22:07 → MEDSURG 22:11
PROVIDERS: Admitting Provider Family Medicine; Emergency Provider Emergency Medicine; PCP Family Medicine; Visit Provider Internal Medicine
DX: I11.0 Hypertensive heart disease with heart failure (principal); I50.33 Acute on chronic diastolic (congestive) heart failure; I48.20 Chronic atrial fibrillation, unspecified; E87.6 Hypokalemia; I25.10 Atherosclerotic heart disease of native coronary artery without angina pectoris; E03.9 Hypothyroidism, unspecified; E11.9 Type 2 diabetes mellitus without complications; J44.9 Chronic obstructive pulmonary disease, unspecified; I73.9 Peripheral vascular disease, unspecified; Z85.21 Personal history of malignant neoplasm of larynx; Z93.0 Tracheostomy status; Z79.82 Long term (current) use of aspirin; Z87.891 Personal history of nicotine dependence; Z95.1 Presence of aortocoronary bypass graft; Z79.01 Long term (current) use of anticoagulants; Z86.711 Personal history of pulmonary embolism; W06.XXXA Fall from bed, initial encounter; Y92.230 Patient room in hospital as the place of occurrence of the external cause; M25.522 Pain in left elbow
CPT/HCPCS: 36415; 36416; 51702; 70450; 71045; 73060; 73070; 73090; 80048; 80053; 81003; 82607; 82746; 82962; 83735; 83880; 84100; 84443; 84484; 85025; 87426; 93005; 93306; 94640; 94664; 96372; 96374; 96375; 97162; 97530; 99285; C9113; J1815; J1940; J3475; J3480; J3490; J7613